=== PATIENT | male | born 1985 | race Hispanic/Latino ===

== ENCOUNTER 2017-12-04 03:40 | Emergency (ER) | payer MEDICARE ==
[~2017-12-04] VITALS: Ht 193 cm; Wt 93.0 kg
[~2017-12-04 03:40] MED LIST: GLIPIZIDE10 MG PO; LASIX40 MG PO; LISINOPRIL10 MG PO; PROPRANOLOL HCL10 MG PO; PROPRANOLOL HCL40 MG PO; SPIRONOLACTONE25 MG PO; ZESTRIL10 MG PO; [UNRECOGNIZED DRUG - OTHER] PO
--- OUTSIDE RECORDS SUMMARY | 2017-12-04 03:43 | XMS REPORT | Continuity of Care Document ---
Author Author [facility] Organization [facility] Address [address] [address] Phone Unavailable Care Team Providers Care Telephone Instrument Supervisor Name Role Phone NO, PCP PCP Unavailable Insurance Providers Guarantor Chuy Topete Address [address] [address] Email [email or web address] Payer Medicare A & B Policy Number [id number] Subscriber's Name Chuy Topete Relationship 18 Self / Same As Patient Group Number [id number] Group Name [id number] Effective Date 13 Advance Directives Directive Response Recorded Date/Time Does the patient have an advance directive? No 10/25/17 10:49pm If yes, is advance directive on file with [facility]? No 10/25/17 10:49pm If not on file with [facility] will patient provide a copy? No 10/25/17 10:49pm Do you have a Directive to Physician? No 10/25/17 1:50pm Do you have a Medical Power of Rail Car Driver? No 10/25/17 1:50pm Do you have an out of hospital Do Not Resuscitate Order? No 10/25/17 1:50pm Do you have any special needs we should be aware of? No 10/25/17 1:50pm Do you have a support person here with you today? Yes 10/25/17 1:50pm Did patient receive Notice of Privacy Practices? Yes 10/25/17 1:50pm Did patient receive patient rights and responsibilities? Yes 10/25/17 1:50pm Problems Medical Problem Onset Date Status Abdominal pain Unknown Anemia Unknown Cirrhosis of liver with ascites Unknown Thrombocytopenia Unknown Medications Current Home Medications Medication Dose Units Route Directions Days Qty Instructions Start Date Furosemide (Lasix) 40 Mg Tablet 80 Mg Oral Daily 30 Tab Nidol 20 Mg Oral Daily Propranolol Hcl 40 Mg Tablet 40 Mg Oral Daily 60 Tab Spironolactone 25 Mg Tablet 200 Mg Oral Daily 60 Tab Past Home Medications Medication Directions Ordered Status Glipizide 10 Mg Tablet, 10 Mg Oral Twice A Day Discontinued Lisinopril (Zestril*) 10 Mg Tablet, 10 Mg Oral Daily Discontinued Lisinopril 10 Mg Tablet, 10 Mg Oral Daily Discontinued Propranolol Hcl 10 Mg Tablet, 10 Mg Oral Twice A Day Discontinued Social History Social History Problem Response Recorded Date/Time Onset Date Status Hx Psychiatric Problems No 10/25/2017 10:49pm Not Applicable Not Applicable Hx Eating Disorder No 10/25/2017 10:49pm Not Applicable Not Applicable Hx Substance Use Disorder No 10/25/2017 10:49pm Not Applicable Not Applicable Hx Depression No 10/25/2017 10:49pm Not Applicable Not Applicable Hx Alcohol Use No 10/25/2017 10:49pm Not Applicable Not Applicable Hx Substance Use Treatment No 10/25/2017 10:49pm Not Applicable Not Applicable Smoking Status Start Date Stop Date Never Smoker Hospital Discharge Instructions No hospital discharge instruction information available. Plan of Care Discharge Date 10/28/17 11:30pm Disposition HOME, SELF-CARE Instructions/Education Provided Cirrhosis Prescriptions See Medication Section Additional Instructions/Education Cardiac Diet. AAT. F/U with PCP in 1-2 weeks. EGD by GI on outpatient basis on Monday at [facility] as scheduled. Functional Status Query Response Date Recorded Assistive Devices None October 25, 2017 10:58pm Ambulation Ability Independent October 25, 2017 10:58pm Toileting Ability Independent October 28, 2017 6:26pm Allergies, Adverse Reactions, Alerts Allergen Type Severity Reaction Status Last Updated Ibuprofen Allergy Mild RASH Active 05/02/17 Immunizations No immunization information available. Vital Signs Acute Vital Signs Vital Response Date/Time Temperature (Fahrenheit) 97.9 degrees F (97.6 - 99.5) 10/28/2017 8:00pm Pulse Pulse Rate (adult) 61 bpm (60 - 90) 10/28/2017 8:00pm Respiratory Rate 20 bpm (12 - 24) 10/28/2017 8:00pm Blood Pressure 107/55 mm Hg 10/28/2017 8:00pm Height 6 ft 4 in 10/25/2017 1:40pm Weight 223 lb 10/25/2017 8:00pm Body Mass Index 27.1 kg/m^2 10/25/2017 10:49pm Results Laboratory Results Test Name Result Units Flags Reference Collection Date/Time Result Date/ Time Comments Differential Total Cells Counted 100 06/11/2017 7:30pm 06/11/2017 10:18pm Neutrophils % (Manual) 77 % H 40-74 06/11/2017 7:30pm 06/11/2017 10: 18pm Lymphocytes % (Manual) 8 % L 19-48 06/11/2017 7:30pm 06/11/2017 10:18pm Monocytes % (Manual) 10 % H 3.4-9.0 06/11/2017 7:30pm 06/11/2017 10: 18pm Eosinophils % (Manual) 5 % 0-7 06/11/2017 7:30pm 06/11/2017 10:18pm Platelet Estimate MARKEDLY DECREASED 06/11/2017 7:30pm 06/11/2017 10:18pm Platelet Morphology Comment FEW GIANT 06/11/2017 7:30pm 06/11/2017 10:18pm Polychromasia FEW 06/11/2017 7:30pm 06/11/2017 10:18pm Anisocytosis SLIGHT 06/11/2017 7:30pm 06/11/2017 10:18pm Urine Calcium Oxalate Crystals FEW FEW 07/11/2017 12:00am 07/11/2017 12:29am Magnesium Level 1.4 MG/DL 1.3-2.1 07/11/2017 12:00am 07/11/2017 12: 30am B-Type Natriuretic Peptide 30.1 pg/mL 0-100 07/11/2017 12:00am 2016 12:41am White Blood Count 3.69 x10e3/uL L 4.8-10.8 10/28/2017 6:00am 10/28/2017 6:17am Red Blood Count 2.81 x10e6/uL L 4.3-5.7 10/28/2017 6:00am 10/28/2017 6: 17am Hemoglobin 9.8 g/dL L 14.0-18.0 10/28/2017 6:00am 10/28/2017 6:17am Hematocrit 29.1 % L 38.2-49.6 10/28/2017 6:00am 10/28/2017 6:17am Mean Corpuscular Volume 103.6 fL H 81-99 10/28/2017 6:00am 10/28/2017 6: 17am Mean Corpuscular Hemoglobin 34.9 pg H 28-32 10/28/2017 6:00am 2017 6:17am Mean Corpuscular Hemoglobin Concent 33.7 g/dL 31-35 10/28/2017 6:00am 10/28/2017 6:17am Red Cell Distribution Width 14.9 % H 11.7-14.4 10/28/2017 6:00am 2017 6:17am Platelet Count 36 x10e3/uL *L 140-360 10/28/2017 6:00am 10/28/2017 6: 17am Results called to JERRY TRIPLETT RN at 0616 on 10/28/17 by Brigid Florez. RB OK. This test has been rerun and double checked for accuracy. Neutrophils (%) (Auto) 66.4 % 38.7-80.0 10/28/2017 6:00am 10/28/2017 6: 17am Lymphocytes (%) (Auto) 16.5 % L 18.0-39.1 10/28/2017 6:00am 10/28/2017 6 :17am Monocytes (%) (Auto) 10.3 % 4.4-11.3 10/28/2017 6:00am 10/28/2017 6: 17am Eosinophils (%) (Auto) 6.0 % 0.0-6.0 10/28/2017 6:00am 10/28/2017 6: 17am Basophils (%) (Auto) 0.3 % 0.0-1.0 10/28/2017 6:00am 10/28/2017 6:17am IM GRANULOCYTES % 0.5 % 0.0-1.0 10/28/2017 6:00am 10/28/2017 6:17am Neutrophils # (Auto) 2.5 2.1-6.9 10/28/2017 6:00am 10/28/2017 6:17am Lymphocytes # (Auto) 0.6 L 1.0-3.2 10/28/2017 6:00am 10/28/2017 6: 17am Monocytes # (Auto) 0.4 0.2-0.8 10/28/2017 6:00am 10/28/2017 6:17am Eosinophils # (Auto) 0.2 0.0-0.4 10/28/2017 6:00am 10/28/2017 6:17am Basophils # (Auto) 0.0 0.0-0.1 10/28/2017 6:00am 10/28/2017 6:17am Absolute Immature Granulocyte (auto 0.02 x10e3/uL 0-0.1 10/28/2017 6: 00am 10/28/2017 6:17am Prothrombin Time 20.3 seconds H 11.9-14.5 10/27/2017 6:05am 10/27/2017 7 :10am Prothromb Time International Ratio 1.64 10/27/2017 6:05am 2017 7:10am Oral Anticoagulant Therapy INR Values: 1. Low Intensity Therapy 1.5 - 2.0 2. Moderate Intensity Therapy 2.0 - 3.0 3. High Intensity Therapy(1) 2.5 - 3.5 4. High Intensity Therapy(2) 3.0 - 4.0 5. Panic Value INR > 5.0 Activated Partial Thromboplast Time 42.1 seconds H 23.8-35.5 10/27/2017 6 :05am 10/27/2017 7:10am Urine Color YELLOW YELLOW 10/26/2017 3:43pm 10/26/2017 4:01pm Urine Clarity SL CLOUDY H CLEAR 10/26/2017 3:43pm 10/26/2017 4:01pm Urine Specific [place] 1.015 1.010-1.025 10/26/2017 3:43pm 2017 4:04pm Urine pH 5 5 - 7 10/26/2017 3:43pm 10/26/2017 4:04pm Urine Leukocyte Esterase NEGATIVE NEGATIVE 10/26/2017 3:43pm 2017 4:04pm Urine Nitrite NEGATIVE NEGATIVE 10/26/2017 3:43pm 10/26/2017 4:04pm Urine Protein NEGATIVE NEGATIVE 10/26/2017 3:43pm 10/26/2017 4:04pm Urine Glucose (UA) NEGATIVE NEGATIVE 10/26/2017 3:43pm 10/26/2017 4: 04pm Urine Ketones NEGATIVE NEGATIVE 10/26/2017 3:43pm 10/26/2017 4:04pm Urine Urobilinogen 0.2 mg/dL 0.2 - 1 10/26/2017 3:43pm 10/26/2017 4: 04pm Urine Bilirubin NEGATIVE NEGATIVE 10/26/2017 3:43pm 10/26/2017 4: 04pm Urine Blood NEGATIVE NEGATIVE 10/26/2017 3:43pm 10/26/2017 4:04pm Urine WBC 0-5 /HPF 0-5 10/26/2017 3:43pm 10/26/2017 4:24pm Urine RBC 0-5 /HPF 0-5 10/26/2017 3:43pm 10/26/2017 4:24pm Urine Bacteria NONE /HPF NONE 10/26/2017 3:43pm 10/26/2017 4:24pm Urine Epithelial Cells NONE /LPF NONE 10/26/2017 3:43pm 10/26/2017 4: 24pm Urine Amorphous Sediment FEW FEW 10/26/2017 3:43pm 10/26/2017 4:24pm Urine Mucus MODERATE H RARE 10/26/2017 3:43pm 10/26/2017 4:24pm Sodium Level 138 mmol/L 136-145 10/28/2017 6:00am 10/28/2017 6:46am Potassium Level 3.4 mmol/L L 3.5-5.1 10/28/2017 6:00am 10/28/2017 6: 46am Chloride Level 112 mmol/L H 98-107 10/28/2017 6:00am 10/28/2017 6:46am Carbon Dioxide Level 22 mmol/L 22-29 10/28/2017 6:00am 10/28/2017 6: 46am Anion Gap 7.4 mmol/L L 8-16 10/28/2017 6:00am 10/28/2017 6:46am Blood Urea Nitrogen 7 mg/dL 7-10/28/2017 6:00am 10/28/2017 6:46am Creatinine 0.63 mg/dL L 0.72-1.25 10/28/2017 6:00am 10/28/2017 6:46am BUN/Creatinine Ratio 11 6-25 10/28/2017 6:00am 10/28/2017 6:46am Estimat Glomerular Filtration Rate > 60 ML/MIN 60- 10/28/2017 6:00am 6:46am Ranges were taken from the National Kidney Disease Education Program and the National [employer] literature. Reference ranges: 60 or greater: Normal 16-59 (for 3 consecutive months): Chronic kidney disease 15 or less: Kidney failure Glucose Level 118 mg/dL 74-118 10/28/2017 6:00am 10/28/2017 6:46am Calcium Level 6.9 mg/dL *L 8.4-10.2 10/28/2017 6:00am 10/28/2017 6:46am Results called to JERRY TRIPLETT RN at 0646 on 10/28/17 by Brigid Florez. RB OK. Lactic Acid Level 23.9 MG/DL H 4.5-19.8 10/25/2017 8:10pm 10/26/2017 12: 44am Total Bilirubin 7.7 mg/dL H 0.2-1.2 10/26/2017 5:53am 10/26/2017 6:45am Aspartate Amino Transf (AST/SGOT) 59 IU/L H 5-34 10/26/2017 5:53am 10/26 6:45am Alanine Aminotransferase (ALT/SGPT) 39 IU/L 0-55 10/26/2017 5:53am 04/2018 6:45am Ammonia 80 UG/DL 31-123 10/25/2017 2:45pm 10/25/2017 3:09pm Total Protein 6.1 g/dL L 6.5-8.1 10/26/2017 5:53am 10/26/2017 6:45am Albumin 2.1 g/dL L 3.5-5.0 10/26/2017 5:53am 10/26/2017 6:45am Globulin 4.0 g/dL H 2.3-3.5 10/26/2017 5:53am 10/26/2017 6:45am Albumin/Globulin Ratio 0.5 L 0.8-2.0 10/26/2017 5:53am 10/26/2017 6: 45am Alkaline Phosphatase 115 IU/L 40-150 10/26/2017 5:53am 10/26/2017 6: 45am Creatine Kinase 189 IU/L 30-200 10/25/2017 2:45pm 10/25/2017 3:21pm Creatine Kinase MB 1.40 ng/mL 0.00-5.00 10/25/2017 2:45pm 10/25/2017 3: 26pm Troponin I < 0.001 ng/mL 0-0.300 10/25/2017 2:45pm 10/25/2017 3:26pm Amylase Level 50 U/L 25-125 10/25/2017 2:45pm 10/25/2017 3:21pm Lipase 20 U/L 8-78 10/25/2017 2:45pm 10/25/2017 3:21pm Free Thyroxine 0.96 ng/dL 0.9-1.8 10/27/2017 6:05am 10/27/2017 8:20am Thyroid Stimulating Hormone (TSH) 0.754 uIU/mL 0.350-4.940 10/27/2017 6: 05am 10/27/2017 8:20am Body Fluid Type PERITONEAL 10/27/2017 1:00pm 10/27/2017 3:00pm Body Fluid Color YELLOW 10/27/2017 1:00pm 10/27/2017 3:00pm Body Fluid Appearance CLOUDY 10/27/2017 1:00pm 10/27/2017 3:00pm Body Fluid WBC 202 cells/uL 10/27/2017 1:00pm 10/27/2017 3:00pm Body Fluid RBC 70 cells/uL 10/27/2017 1:00pm 10/27/2017 3:00pm Body Fluid Neutrophils 83 % 10/27/2017 1:00pm 10/27/2017 3:03pm Body Fluid Lymphocytes 4 % 10/27/2017 1:00pm 10/27/2017 3:03pm Body Fluid Monocytes 13 % 10/27/2017 1:00pm 10/27/2017 3:03pm Body Fluid Other Cells 7 % 10/26/2017 9:45am 10/26/2017 12:36pm Body Fluid Total Cells Counted 100 10/27/2017 1:00pm 10/27/2017 3: 03pm Body Fluid Total Protein 1.3 g/dL 10/27/2017 1:00pm 10/27/2017 2: 47pm Stool Occult Blood POSITIVE H NEGATIVE 10/25/2017 4:30pm 10/25/2017 5: 14pm Microbiology Results Procedure Source Organism/Result Collection Date/Time Result Date/Time Result Status Urine Culture Urine,Clean Catch STAPHYLOCOCCUS AUREUS 02/09/2017 10:42pm 02/12/2017 8:11am Final Blood Culture Blood NO GROWTH AFTER 72 HOURS 10:05pm 10/28/2017 10:21pm Preliminary Procedures Procedure Status Date Provider(s) Computed tomography of abdomen and pelvis with contrast Active 05/02/17 MARIE OCAMPO MD Computed tomography of abdomen and pelvis with contrast Active 07/11/17 TOI MEI MD Computed tomography of abdomen and pelvis with contrast Active 10/25/17 PRUDENCIO MOMIN SERVER PROGRAMMER US gallbladder Active 10/25/17 PRUDENCIO MOMIN NP Thoracentesis with ultrasound guidance Active 10/26/17 JOSE CRAWFORD MD US guided paracentesis Active 10/27/17 JOSE CRAWFORD MD Encounters Encounter Location Arrival/Admit Date Discharge/Depart Date Attending Provider Discharged [facility]patient [facility] 10/25/17 7:21pm 10/28/17 11:30pm JOSE CRAWFORD MD Departed Emergency Room [facility] 07/10/17 10:03pm 07/11 3:40am TOI MEI MD Departed Emergency [facility] 06/11/17 7:13pm 8:51pm HAYDEE FOLEY MD Departed Emergency [facility] 05/02/17 2:28pm 8:21pm MARIE OCAMPO MD Departed Emergency [facility] 02/09/17 10:33pm 02/09 11:14pm HAYDEE FOLEY MD
--- OUTSIDE RECORDS SUMMARY | 2017-12-04 03:43 | XMS REPORT | Clinical Summary ---
Author Author [facility] Organization [facility] Address Unknown Phone Unavailable Care Team Providers Care Substation Operator Conversion Name Role Phone Provider, Unknown PCP Unavailable Allergies Active Allergy Reactions Severity Noted Date Comments Aspirin Rash Low 08/16/2016 Ibuprofen Rash Low 08/16/2016 Ibuprofen 09/04/2017 Current Medications Prescription Sig. Disp. Refills Start End Date Status Date furosemide (LASIX) 20 mg Take 20 mg by mouth 2 Active tablet (two) times a day. spironolactone Take 100 mg by mouth 2 Active (ALDACTONE) 25 MG tablet (two) times a day. pantoprazole (PROTONIX) Take 40 mg by mouth Active 40 MG EC tablet daily. lisinopril Take 10 mg by mouth 08/22/20 Discontin (PRINIVIL,ZESTRIL) 10 MG daily. 17 ued tablet CYANOCOBALAMIN, VITAMIN Take by mouth daily. 08/22/20 Discontin B-12, (VITAMIN B-12 ORAL) 17 ued nadolol (CORGARD) 20 MG Take 10 mg by mouth 10/18/19 Discontin tablet daily. 18 ued Active Problems Problem Noted Date Preop cardiovascular exam 10/10/2017 Overview: Added automatically from request for surgery [id number] Cirrhosis of liver without ascites 10/10/2017 Overview: Added automatically from request for surgery [id number] Portal hypertension 08/22/2017 Esophageal varices without bleeding 08/22/2017 Pedal edema 08/22/2017 Non-alcoholic cirrhosis 08/16/2016 Encounters Date Type Specialty Care Team Description 10/27/2017 Telephone Transplant Lynn Blank RN 10/18/2017 Hospital Procedural Cardiology Viola Brooks MD Preop cardiovascular Encounter exam; Cirrhosis of liver without ascites, unspecified hepatic cirrhosis type 10/18/2017 Procedure Pass Procedural Cardiology 10/18/2017 Surgery Procedural Cardiology Kan Whitehead MD Cv right heart cath [94272 (CPT )] 10/10/2017 Orders Only Cardiology Viola Brooks MD Preop cardiovascular exam (Primary Dx); Cirrhosis of liver without ascites, unspecified hepatic cirrhosis type 10/09/2017 Hospital Radiology Chaz Briseno MD BLANCA (nonalcoholic Encounter steatohepatitis); Chronic liver disease 09/27/2017 Documentation Transplant Lynn Blank RN Listed for Liver Transplant MELD 17;recert due 12/25/17 09/25/2017 Hospital Transplant Chaz Briseno MD BLANCA ( nonalcoholic Encounter steatohepatitis) 09/22/2017 Orders Only Transplant Lynn Blank RN BLANCA ( nonalcoholic steatohepatitis) (Primary Dx); Chronic liver disease 09/22/2017 Telephone Transplant Lynn Blank RN request for labs/ MRB result 09/22/2017 Documentation Transplant Lynn Blank RN MRB outcome/ Listed for Liver transplant 09/13/2017 Documentation Transplant Sushma Rivera RN Liver MRB Presentation 09/06/2017 Hospital Transplant Benedicto Thompson MD Encounter Delmar Rodrigues 09/06/2017 Hospital Transplant Benedicto Thompson MD Encounter 09/06/2017 Hospital Procedural Cardiology Russ Escamilla MD Screening for ischemic Encounter heart disease; BLANCA (nonalcoholic steatohepatitis) 09/06/2017 Hospital Radiology Russ Escamilla MD Screening for ischemic Encounter heart disease; BLANCA (nonalcoholic steatohepatitis) 09/06/2017 Hospital Transplant Russ Escamilla MD BLANAC ( nonalcoholic Encounter steatohepatitis) 09/06/2017 Hospital Radiology Russ Escamilla MD Screening for ischemic Encounter heart disease; BLANCA (nonalcoholic steatohepatitis) 09/06/2017 Hospital Procedural Cardiology Russ Escamilla MD Screening for ischemic Encounter heart disease; BLANCA (nonalcoholic steatohepatitis) 09/06/2017 Telephone Transplant Irasema Sandra MA Sign off needed on order 09/06/2017 Transcribe Transplant Andres Lamas BLANCA ( nonalcoholic Orders steatohepatitis) (Primary Dx) 09/04/2017 Hospital Radiology Chaz Briseno MD Portal hypertension; Encounter Other cirrhosis of liver 09/04/2017 [facility] Pulmonology Russ Escamilla MD Screening for ischemic Encounter heart disease; BLANCA (nonalcoholic steatohepatitis) 09/04/2017 Hospital Transplant Russ Escamilla MD Encounter 09/04/2017 Hospital Transplant Cj Bolanos MD Prolonged Q-T interval on Encounter ECG (Primary Dx); Screening for ischemic heart disease; BLANCA (nonalcoholic steatohepatitis) 09/04/2017 Hospital Transplant Russ Escamilla MD Encounter 09/04/2017 Hospital Transplant Russ Escamilla MD Screening for ischemic Encounter heart disease; BLANCA (nonalcoholic steatohepatitis) 09/04/2017 Ancillary Transplant Russ Escamilla MD Screening for ischemic Orders heart disease; BLANCA (nonalcoholic steatohepatitis) 08/29/2017 Transcribe Transplant Andres Lamas Orders 08/29/2017 Transcribe Transplant Andres Lamas BLANCA ( nonalcoholic Orders steatohepatitis) (Primary Dx); Screening for ischemic heart disease 08/28/2017 Procedure Pass Radiology 08/28/2017 Transcribe Access Chaz Briseno MD Portal hypertension Orders (Primary Dx); Other cirrhosis of liver 08/24/2017 Transcribe Access Chaz Briseno MD Portal hypertension Orders (Primary Dx); Other cirrhosis of liver 08/22/2017 Telephone Transplant Lavonne Ureña RN Referral - Liver Txp after 12/03/2016 Family History Medical History Relation Name Comments Diabetes type II Father Diabetes type II Mother Relation Name Status Comments Father Mother Social History Tobacco Use Types Packs/Day Years Used Date Never Smoker Smokeless Tobacco: Never Used Alcohol Use Drinks/Week oz/Week Comments No Sex Assigned at Date Recorded Not on file Last Filed Vital Signs Vital Sign Reading Time Taken Blood Pressure 141/81 10/18/2017 10:00 AM [facility] Pulse 97 10/18/2017 10:00 AM [facility] Temperature 36.6 C (97.8 F) 10/18/2017 9:52 AM [facility] Respiratory Rate 15 10/18/2017 10:00 AM [facility] Oxygen Saturation 99% 10/18/2017 10:00 AM [facility] Inhaled Oxygen - - Concentration Weight 95.3 kg (210 lb) 10/09/2017 8:31 AM [facility] Height 193 cm (6' 4") 10/18/2017 7:00 AM [facility] Body Mass Index 25.56 10/09/2017 8:31 AM [facility] Plan of Treatment Health Maintenance Due Date Last Done Comments INFLUENZA VACCINE 04/18/2017 Implants Implanted Type Area Steel Wheel Engraver Device Expiration Model / Identifier Date Serial / Lot Catheter Angio Boiler Out Ii 5fr 65cm Surgical N/A: N/A [facility] PERIPHERAL [id number] [facility] Braidd Rita Hobbs - [id number] Implants; INTERVENTION / Implanted: 10/09/2017 (Quantity not Expanders; VASCULAR DANIELA / on file) Extenders; Surgical Wires Procedures Procedure Name Priority Date/Time Associated Diagnosis Comments CV LEFT HEART CATH Routine 10/18/2017 Preop cardiovascular exam Results for this 9:42 AM [facility] Cirrhosis of liver procedure are in the without ascites, results section. unspecified hepatic cirrhosis type ECHOCARDIOGRAM 2D Routine 09/06/2017 Screening for ischemic Results for this COMPLETE W MMODE SPECTRAL 1:35 PM [facility] heart disease procedure are in the COLOR DOPPLER ([id number]) BLANCA (nonalcoholic results section. steatohepatitis) after 12/03/2016 Results * Cv roving tester laboratory procedure (10/18/2017 9:42 AM) Specimen Performing Laboratory [facility] [address] [place] [address] Narrative Normal filling pressures. No pulmonary hypertension. High cardiac output. Low CV risk. * PT and PTT (10/14/2017 11:10 AM) Component Value Ref Range PTT 35 (H) 22 - 34 sec Comment: This test has not been validated for monitoring unfractionated heparin therapy. For testing that is validated for this type of therapy, please refer to the Heparin Anti-Xa assay (test code 76182). For additional information, please refer to http://education.Locality.Dashbook/faq/FFA134 (This link is being provided for informational/educational purposes only.) INR 1.4 (H) Comment: Reference Range 0.9-1.1 Moderate-intensity Warfarin Therapy 2.0-3.0 Higher-intensity Warfarin Therapy 3.0-4.0 Prothrombin time 14.5 (H) 9.0 - 11.5 sec Specimen Performing Laboratory [facility] * CBC with platelet and differential (10/14/2017 11:10 AM) Only the most recent of 3 results within the time period is included. Component Value Ref Range WBC 4.0 3.8 - 10.8 Thousand/uL RBC 3.26 (L) 4.20 - 5.80 Million/uL HGB 11.2 (L) 13.2 - 17.1 g/dL HCT 32.1 (L) 38.5 - 50.0 % MCV 98.5 80.0 - 100.0 fL MCH 34.4 (H) 27.0 - 33.0 pg MCHC 34.9 32.0 - 36.0 g/dL RDW 14.1 11.0 - 15.0 % Platelet count 43 (L)Comment: Giant platelets noted. 140 - 400 Thousand/uL MPV 12.5 7.5 - 12.5 fL Neutrophils, absolute 2,852 1,500 - 7,800 cells/uL Lymphocytes, absolute 544 (L) 850 - 3,900 cells/uL Monocytes, absolute 328 200 - 950 cells/uL Eosinophils, absolute 248 15 - 500 cells/uL Basophils, absolute 28 0 - 200 cells/uL Neutrophils 71.3 % Lymphocytes 13.6 % Monocytes 8.2 % Eosinophils 6.2 % Basophils + RC 0.7 % Specimen Performing Laboratory [facility] * Basic metabolic panel (10/14/2017 11:10 AM) Only the most recent of 3 results within the time period is included. Component Value Ref Range Glucose 125 (H) 65 - 99 mg/dL Comment: Fasting reference interval For someone without known diabetes, a glucose value between 100 and 125 mg/dL is consistent with prediabetes and should be confirmed with a follow-up test. BUN, whole blood 7 7 - 25 mg/dL Creatinine 0.47 (L) 0.60 - 1.35 mg/dL EGFR Non-Afr. Indonesian 145 > OR=60 mL/min/1.73m2 EGFR 168 > OR=60 mL/min/1.73m2 BUN/creatinine ratio 15 6 - 22 (calc) Sodium 138 135 - 146 mmol/L Potassium 4.2 3.5 - 5.3 mmol/L Chloride 109 98 - 110 mmol/L CO2 25 20 - 31 mmol/L Calcium 7.9 (L) 8.6 - 10.3 mg/dL Specimen Performing Laboratory [facility] * Surgical pathology request (10/09/2017 12:05 PM) Component Value Ref Range Surgical pathology report See link below for PDF Lab Report Result status This is Final Report to [id number] Specimen Performing Laboratory [facility] DEPARTMENT OF PATHOLOGY AND GENOMIC MEDICINE [address] [place] [address] * IR Transjugular Liver Biopsy (10/09/2017 11:20 AM) Specimen Performing Laboratory [facility] [address] [place] [address] Narrative Performing Radiologist Eliseo Agosto MD Assistants None Anesthesia Type Moderate sedation was administered by the procedure nurse and monitored by the procedure physician for a tfwg-[id number]-yxon sedation time of 23 minutes. Lidocaine 1 % was used for local anesthetic. Indication K75.81 Nonalcoholic steatohepatitis (BLANCA), K76.9 Liver diseaseunspecified, r o autoimmune component to ESLD Procedure 1. Right hepatic venogram with pressure measurements. 2. Transjugular liver biopsy. Technique Written informed consent was obtained prior to the procedure. All elements of maximal sterile barrier technique were followed. The patient's right neck was sterilely prepared and draped in the routine manner. Lidocaine 1% was used for local anesthetic. Using real-time ultrasound guidance, a 21-gauge micropuncture needle was used to access the right internal jugular vein. A 0.018 inch guidewire was advanced centrally under fluoroscopy. The needle was removed and a micropuncture sheath system was placed. Under ultrasound guidance, documentation of vessel patency, needle access with permanent recording, and reporting are performed followed by placement of a sheath in the right internal jugular vein. A 0.035 inch Amplatz wire was then advanced through the micropuncture sheath and into the inferior vena cava. A long 9-Polish vascular sheath was then placed ,and advanced over the guidewire into the right atrium and then the IVC. A 5- Polish multipurpose catheter was advanced over the guidewire and used to select a suitable hepatic vein. A hepatic venogram was performed with injection of contrast. The hepatic venogram demonstrated diminutive hepatic veins/venules, compatible with changes seen in cirrhosis. The 9-Polish vascular sheath was then advanced into the hepatic vein. The transjugular liver biopsy system was advanced through the 9-Polish vascular sheath, and multiple 19-gauge core liver biopsy specimens were obtained and submitted to pathology. Pressure measurements were then obtained in both the free and wedged positions. Right atrial pressure measures were then obtained. The transjugular liver biopsy system and 9-Polish vascular sheath were then removed from the right internal jugular vein, and hemostasis was achieved with compression. The patient tolerated the procedure well. Radiation Dose Ka,r=85 mGy Complications None Specimens Removed As described in the above report. Estimated Blood Loss Less than 2 mL Blood/Blood Products Administered None Grafts/Implants None Impression: 1. Normal right hepatic venogram 2. Successful transjugular liver biopsy was performed, as detailed above. 3. Pressure measurements: Right atrium: 12 mmHg Free hepatic: 15 mmHg Wedge hepatic: 23 mmHg [facility]-[id number] Procedure Note [facility], Radiology Results Incoming - 10/09/2017 1:12 PM [facility] Performing Radiologist Eliseo Agosto MD Assistants None Anesthesia Type Moderate sedation was administered by the procedure nurse and monitored by the procedure physician for a iejs-lz-gqhv sedation time of 23 minutes. Lidocaine 1 % was used for local anesthetic. Indication K75.81 Nonalcoholic steatohepatitis (BLANCA), K76.9 Liver disease unspecified, r o autoimmune component to ESLD Procedure 1. Right hepatic venogram with pressure measurements. 2. Transjugular liver biopsy. Technique Written informed consent was obtained prior to the procedure. All elements of maximal sterile barrier technique were followed. The patient's right neck was sterilely prepared and draped in the routine manner. Lidocaine 1% was used for local anesthetic. Using real-time ultrasound guidance, a 21-gauge micropuncture needle was used to access the right internal jugular vein. A 0.018 inch guidewire was advanced centrally under fluoroscopy. The needle was removed and a micropuncture sheath system was placed. Under ultrasound guidance, documentation of vessel patency, needle access with permanent recording, and reporting are performed followed by placement of a sheath in the right internal jugular vein. A 0.035 inch Amplatz wire was then advanced through the micropuncture sheath and into the inferior vena cava. A long 9-Polish vascular sheath was then placed ,and advanced over the guidewire into the right atrium and then the IVC. A 5- Polish multipurpose catheter was advanced over the guidewire and used to select a suitable hepatic vein. A hepatic venogram was performed with injection of contrast. The hepatic venogram demonstrated diminutive hepatic veins/venules, compatible with changes seen in cirrhosis. The 9-Polish vascular sheath was then advanced into the hepatic vein. The transjugular liver biopsy system was advanced through the 9-Polish vascular sheath, and multiple 19-gauge core liver biopsy specimens were obtained and submitted to pathology. Pressure measurements were then obtained in both the free and wedged positions. Right atrial pressure measures were then obtained. The transjugular liver biopsy system and 9-Polish vascular sheath were then removed from the right internal jugular vein, and hemostasis was achieved with compression. The patient tolerated the procedure well. Radiation Dose Ka,r=85 mGy Complications None Specimens Removed As described in the above report. Estimated Blood Loss Less than 2 mL Blood/Blood Products Administered None Grafts/Implants None Impression: 1. Normal right hepatic venogram 2. Successful transjugular liver biopsy was performed, as detailed above. 3. Pressure measurements: Right atrium: 12 mmHg Free hepatic: 15 mmHg Wedge hepatic: 23 mmHg [facility]-[id number] * Transfuse platelets (10/09/2017 11:19 AM) * Smear review (10/09/2017 8:10 AM) Only the most recent of 3 results within the time period is included. Component Value Ref Range Smear review Smear Reviewed Specimen Performing Laboratory [facility] DEPARTMENT OF PATHOLOGY AND GENOMIC MEDICINE [address] [place] [address] * Prepare platelet pheresis, 1 Units (10/09/2017 8:10 AM) Component Value Ref Range Product name Apheresis PLT, Leukored IRR #2 Unit number [id number] Product code [id number] Dispense status Transfused Blood expiration date 20171010 Blood type code 5100 Blood type O POSITIVE Specimen Performing Laboratory [facility] DEPARTMENT OF PATHOLOGY AND [facility] MEDICINE [address] [place] [address] * Prothrombin time with INR (10/09/2017 8:10 AM) Only the most recent of 3 results within the time period is included. Component Value Ref Range Prothrombin time 20.9 (H) 12.0 - 15.0 sec INR 1.8 Comment: The International Normalized Ratio (INR) is a therapeutic monitoring tool for patients who are stable on oral anticoagulant therapy. An INR of 2.0-3.0 is suggested for deep vein thrombosis/pulmonary embolism. Specimen Performing Laboratory Blood [facility] DEPARTMENT OF PATHOLOGY AND [facility] MEDICINE [address] [place] [address] * Platelet count (10/09/2017 8:10 AM) Component Value Ref Range Platelet count 37 (L) 150 - 400 k/uL Specimen Performing Laboratory Blood [facility] DEPARTMENT OF PATHOLOGY AND GENOMIC MEDICINE [address] [place] [address] * Type and screen (10/09/2017 8:10 AM) Only the most recent of 2 results within the time period is included. Component Value Ref Range ABO grouping A Rh type POS Antibody screen (gel) NEG Specimen Performing Laboratory Blood [facility] DEPARTMENT OF PATHOLOGY AND GENOMIC MEDICINE [address] [place], [place] [id number] * Estimated GFR (09/25/2017 10:55 AM) Only the most recent of 2 results within the time period is included. Component Value Ref Range GFR Non Af Amer >90 mL/min/1.73 m2 GFR Af Amer >90 mL/min/1.73 m2 Comment: Chronic kidney disease: <60 mL/min/1.73m2 Kidney failure: <15 mL/min/1.73m2 The estimated GFR is calculated from the IDMS-traceable Modification of Diet in Renal Disease Equation. The accuracy of the calculation is poor when the creatinine is normal. Calculated values >90 mL/min/1.73m2 are not reported. This equation has not been validated in children (<18 years), women, the elderly (>70 years), or ethnic groups other than Caucasians and Americans. Specimen Performing Laboratory Plasma specimen [facility] DEPARTMENT OF PATHOLOGY AND GENOMIC MEDICINE [address] [place] [address] * ABORh - transplant (09/25/2017 10:55 AM) Component Value Ref Range ABO grouping A Rh type POS Specimen Performing Laboratory Blood [facility] DEPARTMENT OF PATHOLOGY AND GENOMIC MEDICINE [address] [place], [place] [id number] * Partial thromboplastin time, activated (09/25/2017 10:55 AM) Only the most recent of 2 results within the time period is included. Component Value Ref Range PTT 38.1 (H) 23.0 - 36.0 sec Comment: PTT therapeutic range for unfractionated heparin is 61.0-112.0 seconds which corresponds to Anti-Xa 0.3-0.7 U/ml. Specimen Performing Laboratory Blood [facility] DEPARTMENT OF PATHOLOGY AND GENOMIC MEDICINE [address] [place] [address] * Hepatic function panel (09/25/2017 10:55 AM) Only the most recent of 2 results within the time period is included. Component Value Ref Range Albumin 1.9 (L) 3.5 - 5.0 g/dL Total bilirubin 4.4 (H) 0.0 - 1.2 mg/dL Bilirubin direct 2.1 (H) 0.0 - 0.3 mg/dL Alkaline phosphatase 161 (H) 40 - 129 U/L Protein 6.6 6.3 - 8.3 g/dL Comment: 4.6-7.0 g/dL 1 week 4.4-7.6 g/dL 7 months-1year 5.1-7.3 g/dL 1-2 years 5.6-7.5 g/dL >3 years 6.0-8.0 g/dL 18-150 6.3-8.3 g/dL ALT 48 5 - 50 U/L AST 68 (H) 10 - 50 U/L Specimen Performing Laboratory Plasma specimen [facility] DEPARTMENT OF PATHOLOGY AND GENOMIC MEDICINE [address] [place] [address] * Echocardiogram complete w contrast and 3D if needed (09/06/2017 1:35 PM) Specimen Performing Laboratory [facility] [address] [place] [address] Narrative Echocardiography Report [address] [place] [address] Pat.Name:LISS BERMUDEZ Pat.ID:[id number] St.Date: 09/06/2017Refer.MD:RUSS ESCAMILLA MD Exam Time: 11:23:00 AM Study Type:Routine Echo Height:76inWeight:209lb BSA: 2.26 m2 DOBAge:1985 ,32Y Sex: MALESonogrphr: KODY Cooper Pat. Stat.:OutpatientStudy Status:Final Echo Event ID:[id number] Order ID:[id number] Reason for Study:Screening for ischemic heart disease History / Clinical:Edema, Hypertension, Portal Hypertension Procedures:2D Echo, Colorflow Doppler SUMMARY: Normal 2D and Doppler examination. FINDINGS: LV: LV size is normal. LV EF is normal. Overall wall motion is normal.Estimated EF is 65-69% RV: RV size is normal. RV systolic function is normal. LA: LA size is normal. RA: RA size is normal. AO: Aortic root diameter is normal. JOHNATHON: No pericardial effusion. AV: No structural AV abnormalities noted. MV: No structural MV abnormalities noted. PV: No structural PV abnormalities noted. TV: No structural TV abnormalities noted. MEASUREMENTS: 2D Parasternal [place] LVOT 2.7 cmLA Ds 3.8 cm LVIDd4.8 cmIndex 2.1 cm/m Ao An2.6 cm LVIDs2.8 cmAo Rtd 3.7 cm Index1.6 cm/m LV%fs 40.8 % LV Wdjf598.1 g(122-174) IVSd 1.2 cmLVM Index 84.1 g/m2 LVPWd1 cmRWT 0.4 Signed 09/08/2017 06:49 PM John Yeager M.D. Procedure Note Interface, Radiology Results In - 09/08/2017 6:49 PM [facility] Echocardiography Report [address] [place] [address] Pat.Name: LISS BERMUDEZ Pat.ID: [id number] .Date: 09/06/2017 Refer.MD: RUSS ESCAMILLA MD Exam Time: 11:23:00 AM Study Type:Routine Echo Height: 76in Weight: 209lb BSA: 2.26 m2 Age: 4 1985,32Y Sex: MALE Sonogrphr: KODY Cooper Pat. Stat.:Outpatient Study Status:Final Echo Event ID:[id number] Order ID: [id number] Reason for Study:Screening for ischemic heart disease History / Clinical:Edema, Hypertension, Portal Hypertension Procedures:2D Echo, Colorflow Doppler SUMMARY: Normal 2D and Doppler examination. FINDINGS: LV: LV size is normal. LV EF is normal. Overall wall motion is normal. Estimated EF is 65-69% RV: RV size is normal. RV systolic function is normal. LA: LA size is normal. RA: RA size is normal. AO: Aortic root diameter is normal. JOHNATHON: No pericardial effusion. AV: No structural AV abnormalities noted. MV: No structural MV abnormalities noted. PV: No structural PV abnormalities noted. TV: No structural TV abnormalities noted. MEASUREMENTS: 2D Parasternal [place] LVOT 2.7 cm LA Ds 3.8 cm LVIDd 4.8 cm Index 2.1 cm/m Ao An 2.6 cm LVIDs 2.8 cm Ao Rtd 3.7 cm Index 1.6 cm/m LV%fs 40.8 % LV Mass 190.1 g (122-174) IVSd 1.2 cm LVM Index 84.1 g/m2 LVPWd 1 cm RWT 0.4 Signed 09/08/2017 06:49 PM John Yeager M.D. * Low resolution full typing by O (09/06/2017 10:49 AM) Component Value Ref Range Low resolution full See link below for PDF Lab Report typing by [facility] Specimen Performing Laboratory [facility] DEPARTMENT OF PATHOLOGY AND GENOMIC MEDICINE [address] [place] [address] * C1Q class 1 & 2 antibody (09/06/2017 10:49 AM) Component Value Ref Range C1Q class 1 & 2 antibody See link below for PDF Lab Report Specimen Performing Laboratory [facility] DEPARTMENT OF PATHOLOGY AND [address] [address] * Syphilis treponemal IgG (09/06/2017 10:49 AM) Component Value Ref Range Syphilis treponemal IgG Non-reactiveComment: Non-reactive: No serological Non-reactive evidence of Syphilis infection Specimen Performing Laboratory Serum [facility] DEPARTMENT OF PATHOLOGY [address] [address] * Anti smooth muscle Ab screen (09/06/2017 10:49 AM) Component Value Ref Range Anti smooth muscle Ab Not Detected Not-Detected screen Specimen Performing Laboratory Blood [facility] PATHOLOGY [address] [address] * Total iron binding capacity (09/06/2017 10:49 AM) Component Value Ref Range Iron level 176 (H) 59 - 158 ug/dL Iron binding capacity 193 (L) 200 - 400 ug/dL % Saturation 91.2 (H) 20.0 - 40.0 % Specimen Performing Laboratory Plasma specimen [facility] DEPARTMENT OF PATHOLOGY AND [address] [address] * TB T-SPOT (09/06/2017 10:49 AM) Component Value Ref Range TB T-SPOT SEE NOTE (A) Comment: T-SPOT TUBERCULOSIS Nil Control: 0 Panel A: 12 Panel B: TMTC Positive Control: SAT Result: POSITIVE NOTE: TMTC INDICATES TOO MANY SPOTS TO COUNT SAT INDICATES THE WELL WAS SATURATED RESULTS INTERPRETATION: RESULTS ARE NEGATIVE WHEN (PANEL A-NIL) OR (PANEL B-NIL) <=4 SPOTS, INCLUDING VALUES LESS THAN ZERO. RESULTS ARE POSITIVE WHEN (PANEL A-NIL) OR (PANEL B-NIL) >=8 SPOTS RESULTS ARE BORDERELINE WHEN EITHER (PANEL A-NIL) OR (PANEL B-NIL)=5,6,0R 7. THE TEST IS INVALID WHEN EITHER OF THE FOLLOWING CONDITIONS IS MET: 1.) THE NIL CONTROL HAS >10 SPOTS 2.) THE MITOGEN (POSITIVE CONTROL) HAS <20 SPOTS AND BOTH (PANEL A-NIL) AND (PANEL B-NIL) <=4 SPOTS. M. TUBERCULOSIS INFECTION UNLIKELY, BUT CANNOT BE EXCLUDED ESPECIALLY WHEN: 1. ANY ILLNESS IS CONSISTENT WITH TB DISEASE. 2. LIKELIHOOD OF PROGRESSION TO DISEASE (e.g. DUE TO IMMUNOSUPPRESSION) IS INCREASED. LIMITATIONS: DIAGNOSING OR EXCLUDING TUBERCULOSIS DISEASE, AND ASSESSING THE PROBABILITY OF LTBI, REQUIRES A COMBINATION OF EPIDEMIOLOGICAL, HISTORICAL, MEDICAL, AND DIAGNOSTIC FINDINGS THAT SHOULD BE TAKEN INTO ACCOUNT WHEN INTERPRETING T-SPOT.TB REFER TO THE MOST RECENT CDC GUIDANCE (HTTP: //WWW.CDC.GOV/NCHSTP/TB) FOR DETAILED RECOMMENDATIONS ABOUT DIAGNOSING TB INFECTION (INCLUDING DISEASE) AND SELECTING PERSONS FOR TESTING. 1.) A FALSE NEGATIVE RESULT CAN BE CAUSED BY INCORRECT BLOOD SAMPLE COLLECTION OR IMPROPER HANDLING OF THE SPECIMEN, AFFECTING LYMPHOCYTE FUNCTION 2.) THE PERFORMANCE OF T-SPOT.TB HAS NOT BEEN ADEQUATELY EVALUATED WITH SPECIMENS FROM INDIVIDUALS YOUNGER THAN AGE 17 YEARS, IN WOMEN, AND IN PATIENTS WITH HEMOPHILIA. 3-) A FALSE POSITIVE RESULT WAS OBTAINED FOR T-SPOT.TB WHEN TESTED IN SUBJECTS WITH M. XENOPI, M. KANSASII, AND M. GORDONAE. WHILE ESAT-6 AND CFP-10 ANTIGENS ARE ABSENT FROM BCG STRAINS OF M. BOVIS AND FROM MOST ENVIRONMENTAL MYCOBACTERIA, IT IS POSSIBLE THAT A POSITIVE T-SPOT.TB RESULT MAY BE DUE TO INFECTION WITH M. KANSASII, M. SZULGAI, M. GORDONAE, OR M. MARINUM. ALTERNATIVE TESTS WOULD BE REQUIRED IF THESE INFECTIONS ARE SUSPECTED. 4.) A NEGATIVE TEST RESULT DOES NOT EXCLUDE THE POSSIBILITY OF EXPOSURE TO, OR INFECTION WITH, M. TUBERCULOSIS. PATIENTS WITH RECENT EXPOSURE TO TB INFECTED INDIVIDUALS EXHIBITING A NEGATIVE T-SPOT.TB RESULT SHOULD BE CONSIDERED FOR RETESTING WITHIN 6 WEEKS OR IF OTHER RELEVANT CLINICAL SYMPTOMS INDICATE POSSIBLE INFECTION. 5.) A POSITIVE TEST RESULT DOES NOT RULE IN ACTIVE TB DISEASE; OTHER TESTS SHOULD BE PERFORMED TO CONFIRM THE DIAGNOSIS OF ACTIVE TB DISEASE SUCH SPUTUM SMEAR AND CULTURE, PCR AND CHEST RADIOGRAPHY. 6.) T-SPOT.TB TEST HAS NOT BEEN EVALUATED IN SUBJECTS WHO HAVE RECEIVED >1 MONTH OF ANTI-TB THERAPY. 7. ) REFRIGERATED AND FROZEN SAMPLES ARE NOT RECOMMENDED FOR USE WITH T=SPOT.TB TEST. Performed by: [facility] Molecular Tuberculosis Laboratory [facility] ([id number]) [place], [place] [address] Specimen Performing Laboratory Blood [facility] [address] [place] [id number] * Single antigen beads (09/06/2017 10:49 AM) Component Value Ref Range Single antigen beads See link below for PDF Lab Report Specimen Performing Laboratory [facility] DEPARTMENT PATHOLOGY [address] [address] * HLA autologous crossmatch, AHG (09/06/2017 10:49 AM) Component Value Ref Range HLA autologous crossmatch See link below for PDF Lab Report Specimen Performing Laboratory [facility] DEPARTMENT PATHOLOGY [address] [address] * Hepatitis C antibody (09/06/2017 10:49 AM) Component Value Ref Range Hepatitis C Ab Non-reactive Non-reactive Specimen Performing Laboratory Serum [facility] PATHOLOGY [address] [address] * Cytomegalovirus Ab, IgM (09/06/2017 10:49 AM) Component Value Ref Range Cytomegalovirus Ab, IgM NegativeComment: Negative: CMV IgM antibodies were Negative not detected. Specimen Performing Laboratory Serum [facility] PATHOLOGY [address] [address] * Alpha-1 antitrypsin level (09/06/2017 10:49 AM) Component Value Ref Range Alpha-1 antitrypsin 139 90 - 200 mg/dL Specimen Performing Laboratory Plasma specimen [facility] PATH[facility] [address] [address] * Hepatitis A antibody IgM (09/06/2017 10:49 AM) Component Value Ref Range Hepatitis A IgM Non-reactive Non-reactive Specimen Performing Laboratory Serum [facility] DEPARTMENT PATHOLOGY [address] [address] * Hepatitis A antibody total (09/06/2017 10:49 AM) Component Value Ref Range Hepatitis A total Ab Reactive (A) Non-reactive Comment: Hepatitis A Total Antibody reactive. Hepatitis A IgM antibody will be performed and reported separately when completed. Specimen Performing Laboratory Serum [facility] DEPARTMENT PATHOLOGY [address] [address] * Cancer antigen 19-9 (09/06/2017 10:49 AM) Component Value Ref Range CA 19-9 10 0 - 35 U/mL Comment: The Xochitl Cricket 8000 CA19-9 immunoassay was used. Results obtained with different assay methods or kits should not be used interchangeably and may be different. Specimen Performing Laboratory Plasma specimen [facility] PATH[facility] [address] [address] * Anti mitochondria screen (09/06/2017 10:49 AM) Component Value Ref Range Anti mitochondria screen Not Detected Not-Detected Specimen Performing Laboratory Blood [facility] DEPARTMENT OF PATHOLOGY AND GENOMIC MEDICINE [address] [place] [address] * Ceruloplasmin level (09/06/2017 10:49 AM) Component Value Ref Range Ceruloplasmin 16 15 - 30 mg/dL Specimen Performing Laboratory Plasma specimen [facility] DEPARTMENT OF PATHOLOGY AND GENOMIC MEDICINE [address] [place] [address] * Drug lopes 9, ser/silverio, scrn w/rflx to conf (09/06/2017 10:49 AM) Component Value Ref Range Amphetamines, s/p, screen Negative Cutoff 30 ng/mL Methamphetamine, s/p, Negative Cutoff 30 ng/mL screen Barbiturates, s/p, screen Negative Cutoff 75 ng/mL Benzodiazepines, s/p, Negative Cutoff 75 ng/mL screen Cocaine, s/p, screen Negative Cutoff 30 ng/mL Methadone, s/p, screen Negative Cutoff 40 ng/mL Opiates, s/p, screen Negative Cutoff 30 ng/mL Oxycodone, s/p, screen Negative Cutoff 30 ng/mL Phencyclidine, s/p, Negative Cutoff 15 ng/mL screen Cannabinoids, s/p, screen Negative Cutoff 30 ng/mL Drug screen comments, See Note serum Comment: INTERPRETIVE INFORMATION: Drug Screen 9 Panel, Serum or Plasma - Immunoassay Screen with Reflex to Mass Spectrometry Confirmation/Quantitation 1. Methodology: Qualitative Immunoassay Screen 2. Drugs/Drug classes reported as "Positive" are automatically reflexed to mass spectrometry confirmation/quantitation testing. An immunoassay unconfirmed positive screen result may be useful for medical purposes but does not meet forensic standards. 3. The absence of expected drug(s) and/or drug metabolite(s) may indicate non-compliance, inappropriate timing of specimen collection relative to drug administration, poor drug absorption, or limitations of testing. The concentration at which the screening test can detect a drug or metabolite varies within a drug class. Specimens for which drugs or drug classes are detected by the screen are automatically reflexed to a second, more specific technology (mass spectrometry). The concentration value must be greater than or equal to the cutoff to be reported as positive. Interpretive questions should be directed to the laboratory. 4. For medical purposes only; not valid for forensic use. Test developed and characteristics determined by [facility]. See Compliance Statement B: [email or web address] Performed by [facility], [address] [place] [id number] [email or web address], Robbin Major MD - Lab. Director Specimen Performing Laboratory Blood [address] [address] * Zinc level, serum (09/06/2017 10:49 AM) Component Value Ref Range Zinc 34 (L) 60 - 120 ug/dL Comment: INTERPRETIVE INFORMATION: Zinc, Serum or Plasma Circulating zinc concentrations are dependent on albumin status and are depressed with malnutrition. Zinc may also be lowered with infection, inflammation, stress, oral contraceptives, and . Zinc may be elevated with zinc supplementation or fasting. Elevated zinc concentrations may interfere with copper absorption. Test developed and characteristics determined by [facility]. See Compliance Statement B: [email or web address] Performed by [facility], [address] [place] [id number] [email or web address], Robbin Major MD - Lab. Director Specimen Performing [place] [address] * Alpha fetoprotein (09/06/2017 10:49 AM) Component Value Ref Range Alpha fetoprotein 4.8 0.0 - 8.3 ng/mL Comment: The Cricket 8000 AFP immunoassay was used. Results obtained with different assay methods or kits should not be used interchangeably and may be different. Specimen Performing Laboratory Serum [facility] DEPARTMENT OF PATHOLOGY AND GENOMIC MEDICINE [address] [place] [address] * Hepatitis B core antibody total (09/06/2017 10:49 AM) Component Value Ref Range Hepatitis B core total Ab Non-reactive Non-reactive Specimen Performing Laboratory Serum [facility] DEPARTMENT OF PATHOLOGY AND GENOMIC MEDICINE [address] [place] [address] * Vitamin D 25 hydroxy level (09/06/2017 10:49 AM) Component Value Ref Range Vitamin D, 25-hydroxy 8.9 (L) 30.0 - 150.0 ng/mL Comment: This assay reports the sum of 25-hydroxy vitamin D3 and 25-hydroxy vitamin D2. Reference range: 0-17 years: Deficiency: less than 20ng/mL Optimum level: greater than or equal to 20 ng/mL. 18 years and older: Deficiency: less than 20ng/mL Insufficiency: 20-29 ng/mL Optimum Level: 30-80 ng/mL The assay reportable range is 3.4 155.9 ng/mL. Levels higher than 150 ng/mL may be associated with toxicity. If toxicity is clinically suspected and the reported result is >155.9 ng/mL,contact lab for alternative methods to obtain a definitive level. If separate quantitation of 25-hydroxy vitamin D3 and 25-hydroxy vitamin D2 is needed, please contact lab for alternative methods. Specimen Performing Laboratory Blood [facility] DEPARTMENT OF PATHOLOGY AND GENOMIC MEDICINE [address] [place] [address] * HIV 1, 2 antibody (09/06/2017 10:49 AM) Component Value Ref Range HIV 1, 2 antibody Non-reactive Non-reactive Comment: Starting from December 15 2015, 4th generation HIV screening and confirmation assays are in use at [facility], consistent with the CDC-recommended algorithm. The screening test detects antibodies to HIV-1, HIV-2 and the p24 antigen. Positive screening results will be automatically reflexed to a HIV-1/HIV-2 differentiation assay. Indeterminant HIV-1 results will be further automatically reflexed to a nucleic acid test for detection of acute infection. Western blot will no longer be performed as a confirmation test. For a quick reference guide on the testing algorithm, please refer to: http://stacks.cdc.gov/view/cdc/60027. Specimen Performing Laboratory Serum [facility] DEPARTMENT OF PATHOLOGY AND [address] [address] * Hepatitis B surface antibody (09/06/2017 10:49 AM) Component Value Ref Range Hepatitis B surface Ab Non-reactive Non-reactive Specimen Performing Laboratory Serum [facility] DEPARTMENT OF PATHOLOGY AND [facility] MEDICINE [address] [place] [address] * Hepatitis B surface antigen (09/06/2017 10:49 AM) Component Value Ref Range Hepatitis B surface Ag Non-reactive Non-reactive Specimen Performing Laboratory Serum [facility] PATHOLOGY AND [address] [address] * Cytomegalovirus Ab, IgG (09/06/2017 10:49 AM) Component Value Ref Range Cytomegalovirus Ab, IgG Positive (A) Negative Comment: Positive; IgG antibody to CMV detected which may indicate exposure to CMV infection. Specimen Performing Laboratory Serum [facility] OF PATHOLOGY AND [address] [address] * Fibrinogen (09/06/2017 10:49 AM) Component Value Ref Range Fibrinogen 148 (L) 200 - 450 mg/dL Specimen Performing Laboratory Blood [facility] DEPARTMENT PATHOLOGY [address] [address] * C-reactive protein (09/06/2017 10:49 AM) Component Value Ref Range CRP 0.45 0.00 - 0.50 mg/dL Specimen Performing Laboratory Plasma specimen [facility] DEPARTMENT OF PATHOLOGY [address] [address] * TERESO (09/06/2017 10:49 AM) Component Value Ref Range TERESO screen <1:80 <1:80 Specimen Performing Laboratory Blood [facility] DEPARTMENT PATHOLOGY [address] [address] * Thyroid stimulating hormone (09/06/2017 10:49 AM) Component Value Ref Range TSH 1.83 0.27 - 4.20 uIU/mL Specimen Performing Laboratory Plasma specimen [facility] DEPARTMENT PATHOLOGY [place] [id number] * Prostate specific antigen (09/06/2017 10:49 AM) Component Value Ref Range PSA <0.1 0.0 - 4.0 ng/mL Comment: The CRICKET 8000 PSA immunoassay was used. Results obtained with different assay methods or kits should not be used interchangeably and may be different. Specimen Performing Laboratory Plasma specimen [facility] PATHOLOGY [address] [address] * Prealbumin level (09/06/2017 10:49 AM) Component Value Ref Range Prealbumin 5 (L) 16 - 32 mg/dL Specimen Performing Laboratory Serum [facility] PATHOLOGY [address] [address] * Phosphorus level (09/06/2017 10:49 AM) Component Value Ref Range Phosphorus 3.5 2.4 - 4.5 mg/dL Specimen Performing Laboratory Plasma specimen [facility] DEPARTMENT OF PATHOLOGY AND [address] [address] * Magnesium level (09/06/2017 10:49 AM) Component Value Ref Range Magnesium 1.6 1.6 - 2.6 mg/dL Specimen Performing Laboratory Plasma specimen [facility] DEPARTMENT OF PATHOLOGY AND [address] [address] * Hemoglobin A1c (09/06/2017 10:49 AM) Component Value Ref Range Hemoglobin A1C 5.0 4.0 - 5.6 % Comment: HbA1c cutoffs for diagnosing diabetes: 4.0% - 5.6%=normal 5.7% - 6.4%=increased risk for diabetes (prediabetes) >=6.5%=diabetes Goals for glycemic control (ADA 2016) < 7.0% Target for non adults with diabetes. More or less stringent targets may be appropriate for individual patients. <7.5% Target for Children and adolescents with type 1 diabetes. Specimen Performing Laboratory Blood [facility] OF PATHOLOGY AND [facility] MEDICINE [address] [place] [address] * GGT (09/06/2017 10:49 AM) Component Value Ref Range GGT 58 0 - 59 U/L Specimen Performing Laboratory Plasma specimen [facility] [place] [address] * Ferritin level (09/06/2017 10:49 AM) Component Value Ref Range Ferritin level 150 30 - 400 ng/mL Specimen Performing Laboratory Plasma specimen [facility] DEPARTMENT OF PATHOLOGY AND [address] [address] * Carcinoembryonic antigen (CEA) (09/06/2017 10:49 AM) Component Value Ref Range CEA 1.6 0.0 - 3.8 ng/mL Comment: Reference range for heavy smokers: 0.0 - 5.5 ng/mL The XOCHITL Cricket 8000 CEA immunoassay was used. Results obtained with different assay methods or kits should not be used interchangeably and may be different. Specimen Performing Laboratory Serum [facility] PATHOLOGY AND [facility] MEDICINE [address] [place], [place] [id number] * Alcohol level, blood (09/06/2017 10:49 AM) Component Value Ref Range Alcohol None Detected mg/dL Comment: Normal None Detected Legal Intoxication in [place] 80 mg/dL (0.08%) - Whole Blood Toxic Concentration 200 mg/dL (0.2%) Potentially Fatal 350 - 500 mg/dL (0.35 - 0.5%) Alcohol percent None Detected % Specimen Performing Laboratory Plasma specimen [facility] DEPARTMENT OF PATHOLOGY AND GENOMIC MEDICINE [address] [place], [place] [id number] * XR Panorex (09/06/2017 10:23 AM) Specimen [facility] [address] [place] [address] Narrative EXAMINATION: XR PANOREX CLINICAL HISTORY: Z13.6 Encounter for screening for cardiovascular disorders, K75.81 Nonalcoholic steatohepatitis (BLANCA), Liver transplant evaluation COMPARISON:None IMPRESSION: No periapical lucency is identified. Dental amalgam is present. No suspicious osseous lesions. [id number] Procedure Note Hm Interface, Radiology Results Incoming - 09/06/2017 11:01 AM FORECLOSURE PARALEGAL EXAMINATION: XR PANOREX CLINICAL HISTORY: Z13.6 Encounter for screening for cardiovascular disorders, K75.81 Nonalcoholic steatohepatitis (BLANCA), Liver transplant evaluation COMPARISON: None IMPRESSION: No periapical lucency is identified. Dental amalgam is present. No suspicious osseous lesions. [id number] * XR Chest 2 Vw (09/06/2017 10:22 AM) Specimen Performing Laboratory [facility] [address] [place] [address] Narrative EXAMINATION:XR CHEST 2 VW CLINICAL HISTORY:Z13.6 Encounter for screening for cardiovascular disorders , K75.81 Nonalcoholic steatohepatitis (BLANCA), Liver transplant evaluation COMPARISON:None TECHNIQUE: Frontal and lateral views of the chest obtained. IMPRESSION: Cardiomediastinal silhouette and pulmonary vasculature within normal limits. Best seen on the lateral view is a small right pleural effusion with adjacent atelectasis and or infiltrate. This may represent pneumonia including aspiration. However, can also be sympathetic effusion and atelectasis related to adjacent chronic liver disease, given the clinical history. Left lung is relatively clear, and no left pleural effusion is identified. Mild right hemidiaphragmatic elevation. [id number] Procedure Note Interface, Radiology Results Incoming - 09/06/2017 11:41 AM FORECLOSURE PARALEGAL EXAMINATION: XR CHEST 2 VW CLINICAL HISTORY: Z13.6 Encounter for screening for cardiovascular disorders, K75.81 Nonalcoholic steatohepatitis (BLANCA), Liver transplant evaluation COMPARISON: None TECHNIQUE: Frontal and lateral views of the chest obtained. IMPRESSION: Cardiomediastinal silhouette and pulmonary vasculature within normal limits. Best seen on the lateral view is a small right pleural effusion with adjacent atelectasis and or infiltrate. This may represent pneumonia including aspiration. However, can also be sympathetic effusion and atelectasis related to adjacent chronic liver disease, given the clinical history. Left lung is relatively clear, and no left pleural effusion is identified. Mild right hemidiaphragmatic elevation. [id number] * PV carotid duplex (09/06/2017 9:39 AM) Specimen Performing Laboratory [facility] [address] Vascular Ultrasound Laboratory Carotid Artery Duplex Report [address] [facility], [facility] [address], [place] [address] For supplier quality purposes, the categorization of the degree of the stenosis of this exam is based on criteria described in the IAC carotid stenosis grading white paper( www.intersocietal.org/Vascular) and Za Whitfield., Lam Peterson., et al. Carotid artery stenosis: uriostegui-scale and Doppler US diagnosis--Society of Radiologists in Ultrasound Consensus Conference. Radiology. 2003 Nov; 229(2):340-6. Pat.Name:LISS BERMUDEZ Pat.ID:[id number] St.Date: 09/06/2017Refer.MD:MOUNA ECHEVARRIA MD Exam Time: 10:00:00 AM Study Type:Carotid Height:27.17in Weight:374lb BSA: 1.93 m2 DOBAge:1985 ,32Y Sex: MALESonogrphr: Jaquelin Schultz RVT Pat. Stat.:[facility] 16 TapeVol: SD, CPT - 4: 91364 Echo Event ID:[id number] Order ID:[id number] Reason for Study:Pre-operative CV exam for liver transplant evaluation, Hx of non alchoholic liver cirrhosis, Portal HTN. SUMMARY: PHYSICAL ASSESSMENT BloodPulsesCarotid Pressure Carotid TemporalBruit Right 141/81 ++0 Left 139/79 ++0 CAROTID ARTERY SCAN RIGHT:There is smooth intimal lining in the common carotid ,bulb, internal and external carotid artery. Colorflow is normal. LEFT: There is smooth intimal lining in the common carotid ,bulb, internal and external carotid artery. Colorflow is normal. PRELIMINARY FINDINGS 1. Normal carotid duplex exam, bilaterally. PHYSICIAN INTERPRETATION 1.Bilateral carotid artery examination demonstrates no evidence of plaque or occlusive disease. Carotid Findings:RightLeft Verteb.Flw Antegrade Antegrade Subclavian Triphasic Triphasic MEASUREMENTS: DOPPLER Left CCA Dist CCA Dist PSV66.8 cm/sCCA Dist EDV15.2 cm/s Left CCA Mid CCA Mid PSV 62.1 cm/sCCA Mid EDV 19.3 cm/s Left CCA Prox CCA Prox PSV61.6 cm/sCCA Prox EDV12.9 cm/s Left ICA Dist ICA Dist PSV77.4 cm/Vicki Dist EDV27 cm/ s Left ICA Mid ICA Mid PSV 55.1 cm/Vicki Mid EDV 20.5 cm/s Left ICA Prox ICA Prox PSV52.2 cm/Vicki Prox EDV18.2 cm/s Left ECA Prox ECA Prox PSV53.9 cm/sECA Prox EDV4.69 cm/s Left SCA Prox SCA Prox PSV 127 cm/s Left Vertebral Vertebral PSV 58.6 cm/sVertebral EDV 16.4 cm/s Right CCA Dist CCA Dist PSV52.2 cm/sCCA Dist EDV15.8 cm/s Right CCA Mid CCA Mid PSV 67.4 cm/sCCA Mid EDV 17 cm/ s Right CCA Prox CCA Prox PSV55.1 cm/sCCA Prox EDV14.1 cm/s Right ICA Dist ICA Dist PSV65.1 cm/Vicki Dist EDV23.5 cm/s Right ICA Mid ICA Mid PSV 62.1 cm/Vicki Mid EDV 18.2 cm/s Right ICA Prox ICA Prox PSV79.7 cm/Vicki Prox EDV22.3 cm/s Right ECA Prox ECA Prox PSV75 cm/sECA Prox EDV9.97 cm/ s Right SCA Prox SCA Prox PSV 123 cm/s Right Vertebral Vertebral PSV 55.7 cm/sVertebral EDV 14.1 cm/s Right ICA/CCA Ratio ICA/CCA PSV 1.18 Left ICA/CCA Ratio ICA/CCA PSV0.841 Signed 09/06/2017 04:02 PM López Xiong MD Procedure Note Interface, Radiology Results In - 09/06/2017 4:03 PM [facility] Vascular Ultrasound Laboratory Carotid Artery Duplex Report [address] [facility], [place] [address], [place] [address] For supplier quality purposes, the categorization of the degree of the stenosis of this exam is based on criteria described in the IAC carotid stenosis grading white paper( www.intersocietal.org/Vascular) and Za Whitfield., Lam Peterson., et al. Carotid artery stenosis: uriostegui-scale and Doppler US diagnosis--Society of Radiologists in Ultrasound Consensus Conference. Radiology. 2003 Jul; 229(2):340-6. Pat.Name: LISS BERMUDEZ Pat.ID: [id number] .Date: 09/06/2017 Refer.MD: MOUNA ECHEVARRIA MD Exam Time: 10:00:00 AM Study Type:Carotid Height: 27.17in Weight: 374lb BSA: 1.93 m2 Age: 4 1985,32Y Sex: MALE Sonogrphr: Jaquelin Schultz RVT Pat. Stat.:Outpatient Room: [facility] 16 Tape Vol: SD, CPT - 4: [address] Echo Event ID:[id number] Order ID: [id number] Reason for Study:Pre-operative CV exam for liver transplant evaluation, Hx of non alchoholic liver cirrhosis, Portal HTN. SUMMARY: PHYSICAL ASSESSMENT Blood Pulses Carotid Pressure Carotid Temporal Bruit Right 141/81 + + 0 Left 139/79 + + 0 CAROTID ARTERY SCAN RIGHT: There is smooth intimal lining in the common carotid ,bulb, internal and external carotid artery. Colorflow is normal. LEFT: There is smooth intimal lining in the common carotid ,bulb, internal and external carotid artery. Colorflow is normal. PRELIMINARY FINDINGS 1. Normal carotid duplex exam, bilaterally. PHYSICIAN INTERPRETATION 1. Bilateral carotid artery examination demonstrates no evidence of plaque or occlusive disease. Carotid Findings: Right Left Verteb.Flw Antegrade Antegrade Subclavian Triphasic Triphasic MEASUREMENTS: DOPPLER Left CCA Dist CCA Dist PSV 66.8 cm/s CCA Dist EDV 15.2 cm/s Left CCA Mid CCA Mid PSV 62.1 cm/s CCA Mid EDV 19.3 cm/s Left CCA Prox CCA Prox PSV 61.6 cm/s CCA Prox EDV 12.9 cm/s Left ICA Dist ICA Dist PSV 77.4 cm/s ICA Dist EDV 27 cm/s Left ICA Mid ICA Mid PSV 55.1 cm/s ICA Mid EDV 20.5 cm/s Left ICA Prox ICA Prox PSV 52.2 cm/s ICA Prox EDV 18.2 cm/s Left ECA Prox ECA Prox PSV 53.9 cm/s ECA Prox EDV 4.69 cm/s Left SCA Prox SCA Prox PSV 127 cm/s Left Vertebral Vertebral PSV 58.6 cm/s Vertebral EDV 16.4 cm/s Right CCA Dist CCA Dist PSV 52.2 cm/s CCA Dist EDV 15.8 cm/s Right CCA Mid CCA Mid PSV 67.4 cm/s CCA Mid EDV 17 cm/s Right CCA Prox CCA Prox PSV 55.1 cm/s CCA Prox EDV 14.1 cm/s Right ICA Dist ICA Dist PSV 65.1 cm/s ICA Dist EDV 23.5 cm/s Right ICA Mid ICA Mid PSV 62.1 cm/s ICA Mid EDV 18.2 cm/s Right ICA Prox ICA Prox PSV 79.7 cm/s ICA Prox EDV 22.3 cm/s Right ECA Prox ECA Prox PSV 75 cm/s ECA Prox EDV 9.97 cm/s Right SCA Prox SCA Prox PSV 123 cm/s Right Vertebral Vertebral PSV 55.7 cm/s Vertebral EDV 14.1 cm/s Right ICA/CCA Ratio ICA/CCA PSV 1.18 Left ICA/CCA Ratio ICA/CCA PSV 0.841 Signed 09/06/2017 04:02 PM López Xiong MD * Arterial blood gas, pulmonary func dept (09/04/2017 3:19 PM) Component Value Ref Range pH, arterial 7.480 (H) 7.350 - 7.450 units pCO2, arterial 25.4 (L) 35.0 - 45.0 mmHg pO2, arterial 84.2 80.0 - 90.0 mmHg O2 saturation, arterial 95.6 95.0 - 100.0 % Base excess, arterial -2.8 (L) -2.0 - 2.0 mEq/L Bicarbonate 19.0 (L) 21.0 - 28.0 mEq/L O2 content 16.0 VOL% FiO2, inspired O2% 21 % Carboxyhemoglobin 0.6 0.0 - 1.4 % Comment: Reference Ranges: Carboxyhemoglobin Non smoker: 0.0 - 2.0% Smoker: 2.1 - 5.0% Heavy smoker: 5.1 - 9% Methemoglobin 0.6 0.0 - 1.0 % Hemoglobin, blood gas 12.0 (L) 14.0 - 18.0 g/dL Specimen Performing Laboratory Blood [facility] DEPARTMENT OF PATHOLOGY AND GENOMIC MEDICINE [address] [place] [address] * MRI Abdomen W Wo Contrast (09/04/2017 2:32 PM) Specimen Performing [facility] [address] [place] [id number] Narrative EXAMINATION:MRI ABDOMEN W WO CONTRAST CLINICAL HISTORY:K76.6 Portal hypertension, K74.69 Other cirrhosis of liver , k76.6 k74.69 COMPARISON:None. TECHNIQUE: Multiplanar, multisequence MRI of the abdomen with and without intravenous gadolinium. FINDINGS: Most of the sequences are markedly degraded due to severe motion artifact. The patient reportedly had difficulty with breath holds due to dyspnea. The liver demonstrates cirrhotic contour. No gross focal hepatic mass is identified within limitation of motion artifact. Portal vein is patent. 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 Markedly enlarged spleen with Gamma Parc bodies. Unremarkable gallbladder. Poorly visualized pancreas appears atrophic. A 1 cm cyst is suggested in the head of the pancreas. There is no biliary dilatation. No gross renal or adrenal mass. Small ascites, right pleural effusion, and anasarca. IMPRESSION: 1.Liver cirrhosis and portal hypertension. 2.No definite HCC within limitation of severe motion artifact. Consider liver CT instead for future surveillance. [facility]-[id number] Procedure Note [facility], Radiology Results Incoming - 09/04/2017 3:15 PM FORECLOSURE PARALEGAL EXAMINATION: MRI ABDOMEN W WO CONTRAST CLINICAL HISTORY: K76.6 Portal hypertension, K74.69 Other cirrhosis of liver, k76.6 k74.69 COMPARISON: None. TECHNIQUE: Multiplanar, multisequence MRI of the abdomen with and without intravenous gadolinium. FINDINGS: Most of the sequences are markedly degraded due to severe motion artifact. The patient reportedly had difficulty with breath holds due to dyspnea. The liver demonstrates cirrhotic contour. No gross focal hepatic mass is identified within limitation of motion artifact. Portal vein is patent. 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 Markedly enlarged spleen with Gamma Parc bodies. Unremarkable gallbladder. Poorly visualized pancreas appears atrophic. A 1 cm cyst is suggested in the head of the pancreas. There is no biliary dilatation. No gross renal or adrenal mass. Small ascites, right pleural effusion, and anasarca. IMPRESSION: 1. Liver cirrhosis and portal hypertension. 2. No definite HCC within limitation of severe motion artifact. Consider liver CT instead for future surveillance. [facility]-[id number] * ECG 12 lead (09/04/2017 9:27 AM) Component Value Ref Range Ventricular rate 95 Atrial rate 95 AR interval 160 QRSD interval 86 QT interval 404 QTC interval 507 P axis 1 71 QRS axis 1 59 T wave axis 51 EKG impression Normal sinus rhythm-Prolonged QT-Abnormal ECG-No previous ECGs available- Specimen Performing Laboratory [facility] [place] [address] [place] [address] after 12/03/2016 Insurance Payer Benefit Subscriber ID Type Phone Address Plan / Group MEDICARE MEDICARE xxxxxxxxxx Medicare [place] PART A AND B MEDICARE MEDICARE xxxxxxxxxx Medicare [place] PART A [place] B LISS BERMUDEZ Transplant Self 1985 Home: [id number] [place] [address]
[2017-12-04 04:26] LABS: BASOPHILS % 0.4 % (0.0-1.0); EOSINOPHILS % 0.6 % (0.0-6.0); HEMATOCRIT 33.6 % (38.2-49.6); HEMOGLOBIN 11.6 g/dL (14.0-18.0); LYMPHOCYTES # (AUTO) 0.6 (1.0-3.2); LYMPHOCYTES % 11.1 % (18.0-39.1); MEAN CORPUSCULAR HEMOGLOBIN 34.6 pg (28-32); MEAN CORPUSCULAR HGB CONC 34.5 g/dL (31-35); MEAN CORPUSCULAR VOLUME 100.3 fL (81-99); MONOCYTES # (AUTO) 0.5 (0.2-0.8); MONOCYTES % 9.5 % (4.4-11.3); NEUTROPHILS # (AUTO) 3.9 (2.1-6.9); RED BLOOD COUNT 3.35 x10e6/uL (4.3-5.7); RED CELL DISTRIBUTION WIDTH 16.4 % (11.7-14.4)
[2017-12-04 04:30] LABS: PLATELET COUNT 27 x10e3/uL (140-360)
[2017-12-04 04:34] LABS: INR 2.07; PROTHROMBIN TIME 21.9 seconds (11.9-14.5)
[2017-12-04 04:35] LABS: PARTIAL THROMBOPLASTIN TIME 43.8 seconds (23.8-35.5)
[2017-12-04 04:44] LABS: ALANINE AMINOTRANSFERASE 46 IU/L (0-55); ALBUMIN 2.2 g/dL (3.5-5.0); ALBUMIN/GLOBULIN RATIO 0.5 (0.8-2.0); ALKALINE PHOSPHATASE 168 IU/L (40-150); AMYLASE 71 U/L (25-125); ANION GAP 10.4 mmol/L (8-16); BLOOD UREA NITROGEN 8 mg/dL (7-26); BUN/CREATININE RATIO 10 (6-25); CARBON DIOXIDE 20 mmol/L (22-29); CHLORIDE 106 mmol/L (98-107); CREATININE, SERUM 0.77 mg/dL (0.72-1.25); EST GLOMERULAR FILTRATION RATE > 60 ML/MIN (60-); GLUCOSE 131 mg/dL (74-118); LIPASE 26 U/L (8-78); POTASSIUM 3.4 mmol/L (3.5-5.1); SODIUM 133 mmol/L (136-145)
[2017-12-04 04:45] LABS: CALCIUM 8.1 mg/dL (8.4-10.2)
[2017-12-04 04:51] LABS: CREATINE KINASE MB 0.3 ng/mL (0-5.0)
--- NOTE | 2017-12-04 05:07 | Diagnostic Imaging Report ---
CHEST SINGLE (PORTABLE), 12/04/2017 3:58 AM Technique: CHEST SINGLE (PORTABLE) Comparison: 11/05/2017 Clinical history: Fever Findings: See Impression Impression: 1. Increased large right pleural effusion with associated atelectasis and/or consolidation. 2. Cardiomediastinal silhouette is partially obscured. Signed by: Dr Merly New MD on 12/04/2017 5:04 AM
[2017-12-04] MEDS ORDERED: TRAMADOL HCL 50 MG TAB PO PRN (05:30)
[2017-12-04] MEDS ORDERED: ACETAMINOPHEN 325 MG TAB PO PRN (05:30)
[2017-12-04] MEDS ORDERED: ONDANSETRON HCL INJ 2 MG/ML VIAL IV PRN (05:30)
--- OUTSIDE RECORDS SUMMARY | 2017-12-04 05:56 | XMS REPORT | Clinical Summary ---
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..] hypertension; Encounter Other cirrhosis of liver 09/04/2017 [facility] Pulmonology Russ Escamilla MD Screening for [...] Taken Blood Pressure 141/81 10/18/2017 10:00 AM INTELLIGENT SYSTEMS ENGINEER Pulse 97 10/18/2017 10:00 AM INTELLIGENT SYSTEMS ENGINEER Temperature 36.6 C (97.8 F) 10/18/2017 9:52 AM INTELLIGENT SYSTEMS ENGINEER Respiratory Rate 15 10/18/2017 10:00 AM INTELLIGENT SYSTEMS ENGINEER Oxygen Saturation 99% 10/18/2017 10:00 AM INTELLIGENT SYSTEMS ENGINEER Inhaled Oxygen - - Concentration Weight 95.3 kg (210 lb) 10/09/2017 8:31 AM INTELLIGENT SYSTEMS ENGINEER Height 193 cm (6' 4") 10/18/2017 7:00 AM INTELLIGENT SYSTEMS ENGINEER Body Mass Index 25.56 10/09/2017 8:31 AM INTELLIGENT SYSTEMS ENGINEER Plan of Treatment Health Maintenance Due Date Last Done Comments INFLUENZA VACCINE 04/18/2017 Implants Implanted Type Area Assistant Professor Of English Device Expiration Model / Identifier Date Serial / Lot Catheter Angio Pantry Cook Ii 5fr 65cm Surgical N/A: N/A [facility] PERIPHERAL [id number] [facility] [address] Braidd Rita Hobbs - [id number] Implants; INTERVENTION / Implanted: 10/09/2017 (Quantity not Expanders; VASCULAR DANIELA / on file) Extenders; Surgical Wires Procedures Procedure Name Priority Date/Time Associated Diagnosis Comments CV LEFT HEART CATH Routine 10/18/2017 Preop cardiovascular exam Results for this 9:42 AM INTELLIGENT SYSTEMS ENGINEER Cirrhosis of liver procedure are in the without ascites, results section. unspecified hepatic cirrhosis type ECHOCARDIOGRAM 2D Routine 09/06/2017 Screening for ischemic Results for this COMPLETE W MMODE SPECTRAL 1:35 PM INTELLIGENT SYSTEMS ENGINEER heart disease procedure are in the COLOR DOPPLER ([id number]) BLANCA (nonalcoholic results section. steatohepatitis) after 12/03/2016 Results * Cv brush clearing laborer procedure (10/18/2017 9:42 AM) Specimen Performing Laboratory [facility] [address] [place] [address] Narrative Normal filling pressures. No pulmonary hypertension. High cardiac output. Low CV risk. * PT and PTT (10/14/2017 11:10 AM) Component Value Ref Range PTT 35 (H) 22 - 34 sec Comment: This test has not been validated for monitoring unfractionated heparin therapy. For testing that is validated for this type of therapy, please refer to the Heparin Anti-Xa assay (test code 14633). For additional information, please refer to http://education.Semafone.hubbuzz.com/faq/KTR101 (This link is being provided for informational/educational [...] (L) 0.60 - 1.35 mg/dL EGFR Non-Afr. Com[place]an 145 > OR=60 mL/min/1.73m2 EGFR 168 > [...] Result status This is Final Report to [id number] Specimen Performing Laboratory [facility] DEPARTMENT OF PATHOLOGY AND GENOMIC MEDICINE [address] [place] [address] * IR Transjugular Liver Biopsy (10/09/2017 11:20 AM) Specimen Performing Laboratory [facility] [address] [place] [address] Narrative Performing Radiologist Eliseo Agosto MD Assistants None Anesthesia Type Moderate sedation was administered by the procedure nurse and monitored by the procedure physician for a [id number]-[id number] sedation time of 23 minutes. Lidocaine 1 [...] into the inferior vena cava. A long 9-Vietnamese vascular sheath was then placed ,and advanced over the guidewire into the right atrium and then the IVC. A 5- Vietnamese multipurpose catheter was advanced over the guidewire and used to select a suitable hepatic vein. A hepatic venogram was performed with injection of contrast. The hepatic venogram demonstrated diminutive hepatic veins/venules, compatible with changes seen in cirrhosis. The 9-Vietnamese vascular sheath was then advanced into the hepatic vein. The transjugular liver biopsy system was advanced through the 9-Vietnamese vascular sheath, and multiple 19-gauge core liver biopsy specimens were obtained and submitted to pathology. Pressure measurements were then obtained in both the free and wedged positions. Right atrial pressure measures were then obtained. The transjugular liver biopsy system and 9-Vietnamese vascular sheath were then removed from the [...] hepatic: 15 mmHg Wedge hepatic: 23 mmHg [facility]-[id number] Procedure Note Hm [facility], Radiology Results Incoming - 10/09/2017 1:12 PM INTELLIGENT SYSTEMS ENGINEER Performing Radiologist Eliseo Agosto MD Assistants None Anesthesia Type Moderate sedation was administered by the procedure nurse and monitored by the procedure physician for a tooj-il-pkmy sedation time of 23 minutes. Lidocaine 1 [...] into the inferior vena cava. A long 9-Vietnamese vascular sheath was then placed ,and advanced over the guidewire into the right atrium and then the IVC. A 5- Vietnamese multipurpose catheter was advanced over the guidewire and used to select a suitable hepatic vein. A hepatic venogram was performed with injection of contrast. The hepatic venogram demonstrated diminutive hepatic veins/venules, compatible with changes seen in cirrhosis. The 9-Vietnamese vascular sheath was then advanced into the hepatic vein. The transjugular liver biopsy system was advanced through the 9-Vietnamese vascular sheath, and multiple 19-gauge core liver biopsy specimens were obtained and submitted to pathology. Pressure measurements were then obtained in both the free and wedged positions. Right atrial pressure measures were then obtained. The transjugular liver biopsy system and 9-Vietnamese vascular sheath were then removed from the [...] hepatic: 15 mmHg Wedge hepatic: 23 mmHg [facility]-[id number] * Transfuse platelets (10/09/2017 11:19 AM) * Smear review (10/09/2017 8:10 AM) Only the most recent of 3 results within the time period is included. Component Value Ref Range Smear review Smear Reviewed Specimen Performing Laboratory [facility] DEPARTMENT OF PATHOLOGY AND GENOMIC MEDICINE [address] [place] [address] * Prepare platelet pheresis, 1 Units (10/09/2017 8:10 AM) Component Value Ref Range Product name Apheresis PLT, Leukored IRR #2 Unit number [id number] Product code [id number] Dispense status Transfused Blood expiration date 20171010 Blood type code 5100 Blood type O POSITIVE Specimen Performing Laboratory [facility] DEPARTMENT OF PATHOLOGY AND [facility] MEDICINE [address] [place] [address] * Prothrombin time with INR (10/09/2017 8:10 [...] vein thrombosis/pulmonary embolism. Specimen Performing Laboratory Blood [facility] DEPARTMENT OF PATHOLOGY AND [facility] MEDICINE [address] [place] [address] * Platelet count (10/09/2017 8:10 AM) Component Value Ref Range Platelet count 37 (L) 150 - 400 k/uL Specimen Performing Laboratory Blood [facility] DEPARTMENT OF PATHOLOGY AND GENOMIC MEDICINE [address] [place] [address] * Type and screen (10/09/2017 8:10 AM) Only the most recent of 2 results within the time period is included. Component Value Ref Range ABO grouping A Rh type POS Antibody screen (gel) NEG Specimen Performing Laboratory Blood [facility] DEPARTMENT OF PATHOLOGY AND GENOMIC MEDICINE [address] [place], [place] [id number] * Estimated GFR (09/25/2017 10:55 AM) Only [...] and Americans. Specimen Performing Laboratory Plasma specimen [facility] DEPARTMENT OF PATHOLOGY AND GENOMIC MEDICINE [address] [place] [address] * ABORh - transplant (09/25/2017 10:55 AM) Component Value Ref Range ABO grouping A Rh type POS Specimen Performing Laboratory Blood [facility] DEPARTMENT OF PATHOLOGY AND GENOMIC MEDICINE [address] [place], [place] [id number] * Partial thromboplastin time, activated (09/25/2017 10:55 AM) Only the most recent of 2 results within the time period is included. Component Value Ref Range PTT 38.1 (H) 23.0 - 36.0 sec Comment: PTT therapeutic range for unfractionated heparin is 61.0-112.0 seconds which corresponds to Anti-Xa 0.3-0.7 U/ml. Specimen Performing Laboratory Blood [facility] DEPARTMENT OF PATHOLOGY AND GENOMIC MEDICINE [address] [place] [address] * Hepatic function panel (09/25/2017 10:55 AM) [...] 50 U/L Specimen Performing Laboratory Plasma specimen [facility] DEPARTMENT OF PATHOLOGY AND GENOMIC MEDICINE [address] [place] [address] * Echocardiogram complete w contrast and 3D if needed (09/06/2017 1:35 PM) Specimen Performing Laboratory [facility] [address] [place] [address] Narrative Echocardiography Report [address] [place] [address] Pat.Name:LISS BERMUDEZ Pat.ID:[id number] St.Date: 09/06/2017Refer.MD:RUSS ESCAMILLA MD Exam Time: 11:23:00 AM Study Type:Routine Echo Height:76inWeight:209lb BSA: 2.26 m2 DOBAge:1985 ,32Y Sex: MALESonogrphr: KODY Cooper Pat. Stat.:OutpatientStudy Status:Final Echo Event ID:[id number] Order ID:[id number] Reason for Study:Screening for ischemic heart disease [...] TV abnormalities noted. MEASUREMENTS: 2D Parasternal Long [place] LVOT 2.7 cmLA Ds 3.8 cm LVIDd4.8 cmIndex 2.1 cm/m Ao An2.6 cm LVIDs2.8 cmAo Rtd 3.7 cm Index1.6 cm/m LV%fs 40.8 % LV Joih852.1 g(122-174) IVSd 1.2 cmLVM Index 84.1 g/m2 LVPWd1 cmRWT 0.4 Signed 09/08/2017 06:49 PM John Yeager M.D. Procedure Note Interface, Radiology Results In - 09/08/2017 6:49 PM INTELLIGENT SYSTEMS ENGINEER Echocardiography Report [address] [place] [address] Pat.Name: LISS BERMUDEZ Pat.ID: [id number] .Date: 09/06/2017 Refer.MD: RUSS ESCAMILLA MD Exam Time: 11:23:00 AM Study Type:Routine Echo Height: 76in Weight: 209lb BSA: 2.26 m2 Age: 4 1985,32Y Sex: MALE Sonogrphr: KODY Cooper Pat. Stat.:Outpatient Study Status:Final Echo Event ID:[id number] Order ID: [id number] Reason for Study:Screening for ischemic heart disease [...] TV abnormalities noted. MEASUREMENTS: 2D Parasternal Long [place] LVOT 2.7 cm LA Ds 3.8 cm [...] Report typing by SSO Specimen Performing Laboratory [facility] DEPARTMENT OF PATHOLOGY AND GENOMIC MEDICINE [address] [place] [address] * C1Q class 1 & 2 antibody (09/06/2017 10:49 AM) Component Value Ref Range C1Q class 1 & 2 antibody See link below for PDF Lab Report Specimen Performing Laboratory [facility] DEPARTMENT OF PATHOLOGY AND [address] [address] * Syphilis treponemal IgG (09/06/2017 10:49 AM) Component Value Ref Range Syphilis treponemal IgG Non-reactiveComment: Non-reactive: No serological Non-reactive evidence of Syphilis infection Specimen Performing Laboratory Serum [facility] DEPARTMENT OF PATHOLOGY [address] [address] * Anti smooth muscle Ab screen (09/06/2017 10:49 AM) Component Value Ref Range Anti smooth muscle Ab Not Detected Not-Detected screen Specimen Performing Laboratory Blood [facility] PATHOLOGY [address] [address] * Total iron binding capacity (09/06/2017 10:49 AM) Component Value Ref Range Iron level 176 (H) 59 - 158 ug/dL Iron binding capacity 193 (L) 200 - 400 ug/dL % Saturation 91.2 (H) 20.0 - 40.0 % Specimen Performing Laboratory Plasma specimen [facility] DEPARTMENT OF PATHOLOGY AND [address] [address] * TB T-SPOT (09/06/2017 10:49 AM) Component [...] FOR USE WITH T=SPOT.TB TEST. Performed by: [facility] Molecular Tuberculosis Laboratory [facility] ([id number]) [place], [place] [address] Specimen Performing Laboratory Blood [facility] [address] [place] [address] * Single antigen beads (09/06/2017 10:49 AM) Component Value Ref Range Single antigen beads See link below for PDF Lab Report Specimen Performing Laboratory [facility] DEPARTMENT PATHOLOGY [address] [address] * HLA autologous crossmatch, AHG (09/06/2017 10:49 AM) Component Value Ref Range HLA autologous crossmatch See link below for PDF Lab Report Specimen Performing Laboratory [facility] DEPARTMENT PATHOLOGY [address] [address] * Hepatitis C antibody (09/06/2017 10:49 AM) Component Value Ref Range Hepatitis C Ab Non-reactive Non-reactive Specimen Performing Laboratory Serum [facility] [address] [address] * Cytomegalovirus Ab, IgM (09/06/2017 10:49 AM) Component Value Ref Range Cytomegalovirus Ab, IgM NegativeComment: Negative: CMV IgM antibodies were Negative not detected. Specimen Performing Laboratory Serum [facility] [address] [address] * Alpha-1 antitrypsin level (09/06/2017 10:49 AM) Component Value Ref Range Alpha-1 antitrypsin 139 90 - 200 mg/dL Specimen Performing Laboratory Plasma specimen [facility] [address] [address] * Hepatitis A antibody IgM (09/06/2017 10:49 AM) Component Value Ref Range Hepatitis A IgM Non-reactive Non-reactive Specimen Performing Laboratory Serum [facility] DEPARTMENT PATHOLOGY [address] [address] * Hepatitis A antibody total (09/06/2017 10:49 AM) Component Value Ref Range Hepatitis A total Ab Reactive (A) Non-reactive Comment: Hepatitis A Total Antibody reactive. Hepatitis A IgM antibody will be performed and reported separately when completed. Specimen Performing Laboratory Serum [facility] DEPARTMENT PATHOLOGY [address] [address] * Cancer antigen 19-9 (09/06/2017 10:49 AM) Component Value Ref Range CA 19-9 10 0 - 35 U/mL Comment: The Xochitl Cricket 8000 CA19-9 immunoassay was used. Results obtained with different assay methods or kits should not be used interchangeably and may be different. Specimen Performing Laboratory Plasma specimen [facility] [address] [address] * Anti mitochondria screen (09/06/2017 10:49 AM) Component Value Ref Range Anti mitochondria screen Not Detected Not-Detected Specimen Performing Laboratory Blood [facility] DEPARTMENT OF PATHOLOGY AND GENOMIC MEDICINE [address] [place] [address] * Ceruloplasmin level (09/06/2017 10:49 AM) Component Value Ref Range Ceruloplasmin 16 15 - 30 mg/dL Specimen Performing Laboratory Plasma specimen [facility] DEPARTMENT OF PATHOLOGY AND GENOMIC MEDICINE [address] [place] [address] * Drug lopes 9, ser/silverio, scrn w/rflx [...] use. Test developed and characteristics determined by [employer]. See Compliance Statement B: [email or web address] Performed by [employer], [address] [place] [id number] [email or web address], Robbin Major MD - Lab. Director Specimen Performing Laboratory Blood [address] [address] * Zinc level, serum (09/06/2017 10:49 AM) [...] absorption. Test developed and characteristics determined by [employer]. See Compliance Statement B: [email or web address] Performed by [employer], [address] [place] [id number] [email or web address], Robbin Major MD - Lab. Director Specimen [place] [address] * Alpha fetoprotein (09/06/2017 10:49 AM) Component Value Ref Range Alpha fetoprotein 4.8 0.0 - 8.3 ng/mL Comment: The Cricket 8000 AFP immunoassay was used. Results obtained with different assay methods or kits should not be used interchangeably and may be different. Specimen Performing Laboratory Serum [facility] DEPARTMENT OF PATHOLOGY AND GENOMIC MEDICINE [address] [place] [address] * Hepatitis B core antibody total (09/06/2017 10:49 AM) Component Value Ref Range Hepatitis B core total Ab Non-reactive Non-reactive Specimen Performing Laboratory Serum [facility] DEPARTMENT OF PATHOLOGY AND GENOMIC MEDICINE [address] [place] [address] * Vitamin D 25 hydroxy level (09/06/2017 [...] for alternative methods. Specimen Performing Laboratory Blood [facility] DEPARTMENT OF PATHOLOGY AND GENOMIC MEDICINE [address] [place] [address] * HIV 1, 2 antibody (09/06/2017 10:49 AM) Component Value Ref Range HIV 1, 2 antibody Non-reactive Non-reactive Comment: Starting from December 15 2015, 4th generation HIV screening and confirmation assays are in use at [facility], consistent with the CDC-recommended algorithm. [...] on the testing algorithm, please refer to: http://stacks.cdc.gov/view/cdc/30494. Specimen Performing Laboratory Serum [facility] DEPARTMENT OF PATHOLOGY AND [address] [address] * Hepatitis B surface antibody (09/06/2017 10:49 AM) Component Value Ref Range Hepatitis B surface Ab Non-reactive Non-reactive Specimen Performing Laboratory Serum [facility] DEPARTMENT OF PATHOLOGY AND [facility] MEDICINE [address] [place] [address] * Hepatitis B surface antigen (09/06/2017 10:49 AM) Component Value Ref Range Hepatitis B surface Ag Non-reactive Non-reactive Specimen Performing Laboratory Serum [facility] AND [address] [address] * Cytomegalovirus Ab, IgG (09/06/2017 10:49 AM) Component Value Ref Range Cytomegalovirus Ab, IgG Positive (A) Negative Comment: Positive; IgG antibody to CMV detected which may indicate exposure to CMV infection. Specimen Performing Laboratory Serum [facility] OF PATHOLOGY AND [address] [address] * Fibrinogen (09/06/2017 10:49 AM) Component Value Ref Range Fibrinogen 148 (L) 200 - 450 mg/dL Specimen Performing Laboratory Blood [facility] DEPARTMENT PATHOLOGY [address] [address] * C-reactive protein (09/06/2017 10:49 AM) Component Value Ref Range CRP 0.45 0.00 - 0.50 mg/dL Specimen Performing Laboratory Plasma specimen [facility] DEPARTMENT OF PATHOLOGY [address] [address] * TERESO (09/06/2017 10:49 AM) Component Value Ref Range TERESO screen <1:80 <1:80 Specimen Performing Laboratory Blood [facility] DEPARTMENT PATHOLOGY [address] [address] * Thyroid stimulating hormone (09/06/2017 10:49 AM) Component Value Ref Range TSH 1.83 0.27 - 4.20 uIU/mL Specimen Performing Laboratory Plasma specimen [facility] DEPARTMENT PATHOLOGY [place] [id number] * Prostate specific antigen (09/06/2017 10:49 AM) Component Value Ref Range PSA <0.1 0.0 - 4.0 ng/mL Comment: The CRICKET 8000 PSA immunoassay was used. Results obtained with different assay methods or kits should not be used interchangeably and may be different. Specimen Performing Laboratory Plasma specimen [facility] [address] [address] * Prealbumin level (09/06/2017 10:49 AM) Component Value Ref Range Prealbumin 5 (L) 16 - 32 mg/dL Specimen Performing Laboratory Serum [facility] [address] [address] * Phosphorus level (09/06/2017 10:49 AM) Component Value Ref Range Phosphorus 3.5 2.4 - 4.5 mg/dL Specimen Performing Laboratory Plasma specimen [facility] DEPARTMENT OF PATHOLOGY AND [address] [address] * Magnesium level (09/06/2017 10:49 AM) Component Value Ref Range Magnesium 1.6 1.6 - 2.6 mg/dL Specimen Performing Laboratory Plasma specimen [facility] DEPARTMENT OF PATHOLOGY AND [address] [address] * Hemoglobin A1c (09/06/2017 10:49 AM) Component [...] type 1 diabetes. Specimen Performing Laboratory Blood [facility] OF PATHOLOGY AND [facility] MEDICINE [address] [place] [address] * GGT (09/06/2017 10:49 AM) Component Value Ref Range GGT 58 0 - 59 U/L Specimen Performing Laboratory Plasma specimen [facility] [place] [address] * Ferritin level (09/06/2017 10:49 AM) Component Value Ref Range Ferritin level 150 30 - 400 ng/mL Specimen Performing Laboratory Plasma specimen [facility] DEPARTMENT OF PATHOLOGY AND [address] [address] * Carcinoembryonic antigen (CEA) (09/06/2017 10:49 AM) Component Value Ref Range CEA 1.6 0.0 - 3.8 ng/mL Comment: Reference range for heavy smokers: 0.0 - 5.5 ng/mL The XOCHITL Cricket 8000 CEA immunoassay was used. Results obtained with different assay methods or kits should not be used interchangeably and may be different. Specimen Performing Laboratory Serum [facility] PATHOLOGY AND [facility] MEDICINE [address] [place], [place] [id number] * Alcohol level, blood (09/06/2017 10:49 AM) Component Value Ref Range Alcohol None Detected mg/dL Comment: Normal None Detected Legal Intoxication in [place] 80 mg/dL (0.08%) - Whole Blood Toxic Concentration 200 mg/dL (0.2%) Potentially Fatal 350 - 500 mg/dL (0.35 - 0.5%) Alcohol percent None Detected % Specimen Performing Laboratory Plasma specimen [facility] DEPARTMENT OF PATHOLOGY AND GENOMIC MEDICINE [address] [place], [place] [id number] * XR Panorex (09/06/2017 10:23 AM) Specimen [facility] [address] [place] [address] Narrative EXAMINATION: XR PANOREX CLINICAL HISTORY: Z13.6 Encounter for screening for cardiovascular disorders, K75.81 Nonalcoholic steatohepatitis (BLANCA), Liver transplant evaluation COMPARISON:None IMPRESSION: No periapical lucency is identified. Dental amalgam is present. No suspicious osseous lesions. [id number] Procedure Note Hm Interface, Radiology Results Incoming - 09/06/2017 11:01 AM INTELLIGENT SYSTEMS ENGINEER EXAMINATION: XR PANOREX CLINICAL HISTORY: Z13.6 Encounter for screening for cardiovascular disorders, K75.81 Nonalcoholic steatohepatitis (BLANCA), Liver transplant evaluation COMPARISON: None IMPRESSION: No periapical lucency is identified. Dental amalgam is present. No suspicious osseous lesions. [id number] * XR Chest 2 Vw (09/06/2017 10:22 AM) Specimen Performing Laboratory [facility] [address] [place] [address] Narrative EXAMINATION:XR CHEST 2 VW CLINICAL HISTORY:Z13.6 [...] effusion is identified. Mild right hemidiaphragmatic elevation. [id number] Procedure Note Interface, Radiology Results Incoming - 09/06/2017 11:41 AM INTELLIGENT SYSTEMS ENGINEER EXAMINATION: XR CHEST 2 VW CLINICAL HISTORY: [...] effusion is identified. Mild right hemidiaphragmatic elevation. [id number] * PV carotid duplex (09/06/2017 9:39 AM) Specimen Performing Laboratory [facility] [address] Vascular Ultrasound Laboratory Carotid Artery Duplex Report [id number] [facility], [facility] [address], [place] [address] For manager of quality purposes, the categorization of the degree of the stenosis of this exam is based on criteria described in the IAC carotid stenosis grading white paper( www.intersocietal.org/Vascular) and Za Whitfield., Lam Peterson., et al. Carotid artery stenosis: uriostegui-scale and Doppler US diagnosis--Society of Radiologists in Ultrasound Consensus Conference. Radiology. 2003 Nov; 229(2):340-6. Pat.Name:LISS BERMUDEZ Pat.ID:[id number] St.Date: 09/06/2017Refer.MD:MOUNA ECHEVARRIA MD Exam Time: 10:00:00 AM Study Type:Carotid Height:27.17in Weight:374lb BSA: 1.93 m2 DOBAge:1985 ,32Y Sex: MALESonogrphr: Jaquelin Schultz RVT Pat. Stat.:[facility]patient[facility] 16 TapeVol: SD, CPT - 4: 65704 Echo Event ID:[id number] Order ID:[id number] Reason for Study:Pre-operative CV exam for liver [...] Radiology Results In - 09/06/2017 4:03 PM [facility] Vascular Ultrasound Laboratory Carotid Artery Duplex Report [id number] [facility], [address] [address], [place] [address] For manager of quality purposes, the categorization of the degree of the stenosis of this exam is based on criteria described in the IAC carotid stenosis grading white paper( www.intersocietal.org/Vascular) and Za Whitfield., Lam Peterson., et al. Carotid artery stenosis: uriostegui-scale and Doppler US diagnosis--Society of Radiologists in Ultrasound Consensus Conference. Radiology. 2003 Jul; 229(2):340-6. Pat.Name: LISS BERMUDEZ Pat.ID: [id number] .Date: 09/06/2017 Refer.MD: MOUNA ECHEVARRIA MD Exam Time: 10:00:00 AM Study Type:Carotid Height: 27.17in Weight: 374lb BSA: 1.93 m2 Age: 6 1985,32Y Sex: MALE Sonogrphr: Jaquelin Schultz RVT Pat. Stat.:Outpatient Room: [facility] 16 Tape Vol: SD, CPT - 4: 50689 Echo Event ID:[id number] Order ID: [id number] Reason for Study:Pre-operative CV exam for liver [...] - 18.0 g/dL Specimen Performing Laboratory Blood [facility] DEPARTMENT OF PATHOLOGY AND GENOMIC MEDICINE [address] [place] [address] * MRI Abdomen W Wo Contrast (09/04/2017 2:32 PM) Specimen [facility]forming [facility] [address] [place] [id number] Narrative EXAMINATION:MRI ABDOMEN W WO CONTRAST CLINICAL [...] are seen. Markedly enlarged spleen with Gamma [place] bodies. Unremarkable gallbladder. Poorly visualized pancreas appears atrophic. A 1 cm cyst is suggested in the head of the pancreas. There is no biliary dilatation. No gross renal or adrenal mass. Small ascites, right pleural effusion, and anasarca. IMPRESSION: 1.Liver cirrhosis and portal hypertension. 2.No definite HCC within limitation of severe motion artifact. Consider liver CT instead for future surveillance. [facility]-[id number] Procedure Note [facility], Radiology Results Incoming - 09/04/2017 3:15 PM [employer] EXAMINATION: MRI ABDOMEN W WO CONTRAST CLINICAL [...] are seen. Markedly enlarged spleen with Gamma [place] bodies. Unremarkable gallbladder. Poorly visualized pancreas appears atrophic. A 1 cm cyst is suggested in the head of the pancreas. There is no biliary dilatation. No gross renal or adrenal mass. Small ascites, right pleural effusion, and anasarca. IMPRESSION: 1. Liver cirrhosis and portal hypertension. 2. No definite HCC within limitation of severe motion artifact. Consider liver CT instead for future surveillance. [facility]-[id number] * ECG 12 lead (09/04/2017 9:27 AM) Component Value Ref Range Ventricular rate 95 Atrial rate 95 MO interval 160 QRSD interval 86 QT interval 404 QTC interval 507 P axis 1 71 QRS axis 1 59 T wave axis 51 EKG impression Normal sinus rhythm-Prolonged QT-Abnormal ECG-No previous ECGs available- Specimen Performing Laboratory [facility] [address] [place] [address] after 12/03/2016 Insurance Payer Benefit Subscriber ID Type Phone Address Plan / Group MEDICARE MEDICARE xxxxxxxxxx Medicare [place] PART A [place] B MEDICARE MEDICARE xxxxxxxxxx Medicare [place] PART A [place] B LISS BERMUDEZ Transplant Self 1985 Home: [id number] [place] [address]
[2017-12-04] MEDS ORDERED: PIPER-TAZ 3.375 GM 50 ML IV SCH ×2 (06:00→15:00)
[2017-12-04] MEDS ORDERED: SODIUM CHLORIDE 0.9% 250ML 250 ML ONE (06:40)
[2017-12-04] MEDS: METRONIDAZOLE 500MG/NS 100ML 100 ML IV SCH ×2 (06:46→07:45)
[2017-12-04] MEDS ORDERED: METRONIDAZOLE 500MG/NS 100ML 100 ML IV SCH ×2 (08:00→14:00)
== END 2017-12-04 15:32 | disposition home or self-care (01) ==
LOC: ER 03:40 → ERHOLD 05:53 → UNDOADMIN 05:53 → ERHOLD 14:47 → MED/SURG2 14:47 → ER 15:32
DX: R10.11 Right upper quadrant pain (principal); R10.13 Epigastric pain; R10.12 Left upper quadrant pain
CPT/HCPCS: 36415; 71045; 80053; 82150; 82550; 82553; 83690; 84484; 85025; 85610; 85730; 93005; 99285; J2543; J7050